=== PATIENT | male | born 1945 | race Caucasian/White ===

== ENCOUNTER 2017-12-09 19:54 | Observation (INO) | payer MEDICARE, OTHER ==
[2017-12-09 20:06] VITALS: BP 123/78; PULSE 105; RESP 24; TEMP 98.2; O2SAT 95
[2017-12-09] MEDS ORDERED: ONDANSETRON HCL 4 MG/2 ML VIAL IV PUSH ONE (22:45)
[2017-12-09] MEDS ORDERED: SODIUM CHLOR 0.9% 1000 ML INJ 1,000 ML IV ONE (22:45)
[2017-12-09] MEDS ORDERED: PANTOPRAZOLE SODIUM 40 MG VIAL IV PUSH ONE (22:45)
[2017-12-09 23:06] VITALS: BP 149/86; PULSE 86; RESP 18; O2SAT 98
[2017-12-09] MEDS ORDERED: ONDA8TAB7 PO (23:10)
[2017-12-09] MEDS ORDERED: LANTUS2P SQ (23:10)
[2017-12-09] MEDS ORDERED: NIFE30TA61 PO (23:10)
[2017-12-09] MEDS ORDERED: LISI-519 PO (23:10)
[2017-12-09] MEDS ORDERED: HUMALOG SQ (23:10)
[2017-12-09] MEDS ORDERED: OMEP20TA93 PO (23:10)
[2017-12-09] MEDS ORDERED: METF500T PO (23:10)
[2017-12-09] MEDS ORDERED: KLOR10TA PO (23:10)
[2017-12-09 23:15] LABS: ALBUMIN 3.5 GM/DL (3.4-5.0); ALT (GPT) 22 U/L (12-78); AST (GOT) 22 U/L (15-37); BICARBONATE 24.1 MEQ/L (21.0-32.0); BLOOD UREA NITROGEN 12 MG/DL (7-18); CALCIUM 9.1 MG/DL (8.5-10.1); CHLORIDE 107 MEQ/L (98-107); CREATININE 1.07 MG/DL (0.60-1.30); GLOMERULAR FILTRATION RATE 68 ML/MIN (>89); GLUCOSE,RANDOM 151 MG/DL (74-106); SODIUM (NA) 140 MEQ/L (136-145)
[2017-12-09 23:18] LABS: ALKALINE PHOSPHATASE 136 U/L (45-117); TOTAL BILIRUBIN ADULT 0.7 MG/DL (0.2-1.0); TOTAL PROTEIN 7.6 GM/DL (6.4-8.2)
[2017-12-09 23:23] LABS: AUTOMATED NEUTROPHIL # 6.4 TH/MM3 (1.8-7.7); BASOPHIL % 0.4 % (0.0-2.0); EOSINOPHIL # 0.1 TH/MM3 (0-0.4); EOSINOPHIL % 1.3 % (0.0-4.0); HEMATOCRIT 35.9 % (39.0-51.0); HEMOGLOBIN 12.4 GM/DL (13.0-17.0); LYMPH % 19.4 % (9.0-44.0); LYMPHOCYTE # 1.8 TH/MM3 (1.0-4.8); MEAN CELL VOLUME 92.3 FL (80.0-100.0); MEAN CORPUSCULAR HGB CONC 34.6 % (32.0-36.0); MEAN PLATELET VOLUME 6.4 FL (7.0-11.0); MONO % 8.2 % (0.0-8.0); MONOCYTE # 0.7 TH/MM3 (0-0.9); NEUT % 70.7 % (16.0-70.0); PLATELET COUNT 423 TH/MM3 (150-450); RED BLOOD COUNT 3.89 MIL/MM3 (4.50-5.90); RED CELL DISTRIBUTION WIDTH 14.4 % (11.6-17.2); WHITE BLOOD COUNT 9.1 TH/MM3 (4.0-11.0)
[2017-12-09 23:25] LABS: BILIRUBIN, URINE NEG (NEG); BLOOD, URINE NEG (NEG); GLUCOSE,URINE NEG (NEG); HYALINE CAST, URINE 3 /lpf (RARE); KETONE, URINE TRACE mg/dL (NEG); MUCUS URINE MANY /lpf (OCC); NITRITE,URINE NEG (NEG); PH, URINE 5.5 (5.0-8.5); SQUAMOUS EPITHELIAL CELL URINE <1 /hpf (0-5); URINE COLOR YELLOW (YELLW/STRAW); URINE LEUKOCYTE ESTERASE TRACE (NEG); WHITE BLOOD CELL CAST, URINE 3 /lpf
[2017-12-09 23:37] LABS: PROTHROMBIN TIME - PATIENT 10.3 SEC (9.8-11.6)
[2017-12-10] VITALS (10 sets, daily range): BP systolic 115–134; BP diastolic 60–70; PULSE 65–77; RESP 14–18; TEMP 98.1–98.6; O2SAT 93–97
--- NOTE | 2017-12-10 00:25 | RADRPT ---
EXAM DATE/TIME: 12/09/2017 23:57 [place] COMPARISON: No previous studies available for comparison. INDICATIONS : Abdomen pain. IV CONTRAST: 100 cc Omnipaque 350 (iohexol) IV ORAL CONTRAST: No oral contrast ingested. RADIATION DOSE: 10.5 CTDIvol (mGy) MEDICAL HISTORY : Carcinoma, pancreas. SURGICAL HISTORY : stent ENCOUNTER: Initial ACUITY: 1 day PAIN SCALE: 5/10 LOCATION: Bilateral abdomen TECHNIQUE: Volumetric scanning of the abdomen and pelvis was performed. Using automated exposure control and ad justment of the mA and/or kV according to patient size, radiation dose was kept as low as reasonably achievable to obtain optimal diagnostic quality images. DICOM format image data is available electro nically for review and comparison. FINDINGS: LOWER LUNGS: The visualized lower lungs are clear. LIVER: Homogeneous density with an 11 mm low-density lesion in the right liver and 29 mm low-density lesions in the left lobe. There is pneumobilia without dilatation of the bowel ducts. Gallbladder remains pr esent and no calcified stones are seen. There is air in the gallbladder lumen. A metallic stent stent s from the hilum of the liver distally to the second portion of the duodenum. SPLEEN: Normal size without lesion. PANCREAS: There is an area of ill-defined low-density in the pancreatic body measuring approximately 2.5 cm. Th ere is atrophy of the pancreatic tail. No duct dilatation is present. There additionally is an area o f low density fullness along the medial aspect of the pancreatic head. KIDNEYS: Normal in size and shape. There is no stone or hydronephrosis. There is a 1.8 cm low-density lesion at the upper pole of the left kidney. Hounsfield measurements are 56. ADRENAL GLANDS: Within normal limits. VASCULAR: There is no aortic aneurysm. There is moderate to severe atherosclerotic disease. BOWEL/MESENTERY: The stomach, small bowel, and colon demonstrate no acute abnormality. There is no free intraperitone al air. There is a moderate volume of free fluid in the abdomen and pelvis with areas of mild periton eal enhancement. ABDOMINAL WALL: There is a small umbilical hernia containing fat and fluid. RETROPERITONEUM: There is no lymphadenopathy. BLADDER: No wall thickening or mass. REPRODUCTIVE: Prostate gland is enlarged. There is a hypervascular area at the right prostate base measuring approx imately 2.1 cm. INGUINAL: There is no lymphadenopathy or hernia. MUSCULOSKELETAL: There are degenerative changes of the lumbar spine but no lytic or blastic lesion is seen. CONCLUSION: 1. No acute finding is identified within the abdomen or pelvis. However, there is free fluid in the a bdomen and pelvis with areas of mild peritoneal enhancement suspicious for peritoneal spread of disea se in this patient with known pancreatic cancer. There is a an ill-defined area of low-density in the pancreatic body measuring 2.5 cm and an area of low density fullness in the medial pancreatic head w hich could correspond to the primary tumor site. Suggest correlating with the patient's prior imaging studies. 2. There are 3 low-density lesions within the liver ranging in size from 9 mm up to 11 mm. These are suspicious for metastatic lesions. Again, suggest correlating with the patient's prior imaging studie s. 3. There is a 1.8 cm low-density lesion in the left upper pole kidney. It does not meet criteria for a simple cyst. Suggest correlating with prior imaging studies or further characterizing with ultrasou nd, if needed clinically. 4. There is a 2.1 cm hypervascular area at the right prostate base. This could represent a hyperplast ic nodule or carcinoma. If PSA is elevated which consider further evaluation. Robby Ward MD on December 10, 2017 at 0:13 Board Certified Radiologist. This report was verified electronically.
[2017-12-10] MEDS ORDERED: IOHEXOL 350 MG/ML 10 ML VIAL (for RAD DIAG) IVCONTRAST ONE (00:41)
[2017-12-10] MEDS ORDERED: GLUCAGON 1 MG/ML VIAL OTHER PRN (01:00)
[2017-12-10] MEDS ORDERED: NALOXONE HCL 0.4 MG/ML AMP IV PUSH PRN (01:00)
[2017-12-10] MEDS ORDERED: MORPHINE SULFATE 2 MG/ML INJ IV PUSH ONE (01:00)
[2017-12-10] MEDS ORDERED: DEXTROSE 50% IN WATER 50 ML VIAL(D50) IV PUSH PRN (01:00)
[2017-12-10] MEDS ORDERED: SODIUM CHLORIDE 0.9% FLUSH 10 ML FLUSH IV FLUSH PRN (01:00)
[2017-12-10] MEDS ORDERED: ACETAMINOPHEN 325 MG TAB PO PRN (01:00)
[2017-12-10] MEDS: SODIUM CHLOR 0.9% 1000 ML INJ 1,000 ML IV SCH ×3 (01:10→20:12)
[2017-12-10] MEDS: HEPARIN SODIUM - SQ 10,000 UNITS/ML VIAL SQ SCH ×3 (01:10→15:59)
--- NOTE | 2017-12-10 01:48 | PD ---
HPI . Abdominal pain Chief Complaint: Abdominal Pain Time Seen by Provider: 22:36 Travel History International Travel<30 days: No Contact w/Intl Traveler<30days: No Traveled to known affect area: No History of Present Illness HPI 72-year-old male with history of pancreatic cancer undergoing chemotherapy, patient presents with having worsening abdominal pain, abdominal distention, sent in by his oncologist for evaluation, CT scan, and admission with oncology consult. Patient denies fever chills sweats, has nausea but no vomiting, and no significant stool changes, no diarrhea stearrhea or constipation. Denies cough or shortness of breath. PFSH Past Medical History Narrative Medical Past medical history reviewed Chemotherapy: Yes Diabetes: Yes Patient Takes Glucophage: Yes Medical other: Yes (double implanted port for chemo) Social History Alcohol Use: Yes (occassionally ) Tobacco Use: No Substance Use: No Allergies-Medications (Allergen,Severity, Reaction): Coded Allergies: No Known Allergies (Verified Allergy, Unknown, 12/09/17) Reported Meds & Prescriptions Reported Meds & Active Scripts Active Reported Lantus Inj (Insulin Glargine) 1,000 Unit/10 Ml Vial 30 Units SQ HS Humalog Inj (Insulin Human Lispro) 1,000 Unit/10 Ml Vial 10 Units SQ ACHS Max dose at bedtime:( )units; sugars < 70,(0)units; sugars 150-199,(2)units; sugars 200-249,(4)units; sugars 250-299,(7)units; sugars 300-349,(10)units; sugars more than 349,(12)units. Lisinopril 5 Mg Tab 5 Mg PO DAILY Klor-Con 10 (Potassium Chloride) 10 Meq Tab 10 Meq PO DAILY Ondansetron (Ondansetron HCl) 8 Mg Tab 8 Mg PO TID PRN Omeprazole 20 Mg Tab 20 Mg PO DAILY Nifedipine ER 24 HR (Nifedipine) 30 Mg Tab 30 Mg PO DAILY Metformin (Metformin HCl) 500 Mg Tab 500 Mg PO BIDPC Narrative Medication Allergies and medications reviewed Review of Systems Except as stated in HPI: all other systems reviewed are Neg General / Constitutional: No: Fever Eyes: No: Visual changes HENT: No: Headaches Cardiovascular: No: Chest Pain or Discomfort Respiratory: No: Shortness of Breath Gastrointestinal: Positive: Nausea, Abdominal Pain, No: Vomiting, Diarrhea, Hematemesis, Hematochezia, Constipation Genitourinary: No: Urgency, Frequency, Dysuria, Hematuria Musculoskeletal: No: Pain Skin: No Rash Neurologic: No: Weakness Psychiatric: No: Depression Endocrine: No: Polydipsia Hematologic/Lymphatic: No: Easy Bruising Physical Exam Narrative GENERAL: Awake alert oriented 3 patient appears uncomfortable but no acute distress vital signs otherwise afebrile normal and stable SKIN: Warm and dry. Color is sallow, no diaphoresis cyanosis or pallor HEAD: Atraumatic. Normocephalic. EYES: Pupils equal and round. No scleral icterus. No injection or drainage. ENT: No nasal bleeding or discharge. Mucous membranes pink and moist. NECK: Trachea midline. No JVD. Supple full range of motion CARDIOVASCULAR: Regular rate and rhythm. S1-S2 no murmurs rubs gallops RESPIRATORY: No accessory muscle use. Clear to auscultation. Breath sounds equal bilaterally. GASTROINTESTINAL: Abdomen soft, non-tender, nondistended. Hepatic and splenic margins not palpable. MUSCULOSKELETAL: Extremities without clubbing, cyanosis, or edema. No obvious deformities. NEUROLOGICAL: Awake and alert. No obvious deficits. PSYCHIATRIC: Appropriate mood and affect; insight and judgment normal. Data Data Last Documented VS Vital Signs Date Time Temp Pulse Resp B/P (MAP) Pulse Ox O2 Delivery O2 Flow Rate FiO2 12/09/17 23:06 86 18 149/86 (107) 98 Room Air 12/09/17 20:06 98.2 Orders Orders Complete Blood Count With Diff (12/09/17 20:08) Comprehensive Metabolic Panel (12/09/17 20:08) Lipase (12/09/17 20:08) Prothrombin Time / Inr (Pt) (12/09/17 20:08) Act Partial Throm Time (Ptt) (12/09/17 20:08) Urinalysis - C+S If Indicated (12/09/17 20:08) Lactic Acid Sepsis Protocol (12/09/17 20:08) Blood Culture (12/09/17 20:08) Sodium Chlor 0.9% 1000 Ml Inj (Ns 1000 M (12/09/17 22:45) Ondansetron Inj (Zofran Inj) (12/09/17 22:45) Pantoprazole Inj (Protonix Inj) (12/09/17 22:45) Ct Abd/Pel W Iv Contrast(Rout) (12/09/17 ) Iohexol 350 Inj (Omnipaque 350 Inj) (12/10/17 00:41) Place In Observation (12/10/17 ) Vital Signs (Adult) Q4H (12/10/17 00:50) Activity Oob With Assistance (12/10/17 00:50) Intake + Output ROSALVA.QSHIFT (12/10/17 00:50) Diet 1800 Ada Cons Carb (12/10/17 Breakfast) Sodium Chlor 0.9% 1000 Ml Inj (Ns 1000 M (12/10/17 00:50) Sodium Chloride 0.9% Flush (Ns Flush) (12/10/17 01:00) Sodium Chloride 0.9% Flush (Ns Flush) (12/10/17 09:00) Acetaminophen (Tylenol) (12/10/17 01:00) Ondansetron Inj (Zofran Inj) (12/10/17 01:00) Comprehensive Metabolic Panel (12/11/17 06:00) Complete Blood Count With Diff (12/11/17 06:00) Heparin Inj (Heparin Inj) (12/10/17 01:00) Naloxone Inj (Narcan Inj) (12/10/17 01:00) Morphine Inj (Morphine Inj) (12/10/17 01:00) Bedside Glucose ROSALVA.CSUGAR (12/10/17 00:50) Special Diet Instructions (12/10/17 00:50) Blood Glucose Goal (Criteria) (12/10/17 00:50) Hypoglycemia 70 Mg/Dl Or < (12/10/17 00:50) Notify Dr: Other (12/10/17 00:50) Dextrose 50% In [place] (Vial) Inj (D50w (Vi (12/10/17 01:00) Glucagon Inj (Glucagon Inj) (12/10/17 01:00) Insulin Aspart Supplemtl Scale (Novolog (12/10/17 08:00) Lisinopril (Prinivil) (12/10/17 09:00) Nifedipine Sr (Procardia Xl) (12/10/17 09:00) Pantoprazole (Protonix) (12/10/17 09:00) Admit Order (Ed Use Only) (12/10/17 00:59) Morphine Inj (Morphine Inj) (12/10/17 01:00) Labs Laboratory Tests Test 12/09/17 22:20 12/09/17 22:30 12/09/17 22:45 12/09/17 23:00 Prothrombin Time 10.3 SEC Prothromb Time International Ratio 1.0 RATIO Activated Partial Thromboplast Time 28.6 SEC Blood Urea Nitrogen 12 MG/DL Creatinine 1.07 MG/DL Random Glucose 151 MG/DL Total Protein 7.6 GM/DL Albumin 3.5 GM/DL Calcium Level 9.1 MG/DL Alkaline Phosphatase 136 U/L Aspartate Amino Transf (AST/SGOT) 22 U/L Alanine Aminotransferase (ALT/SGPT) 22 U/L Total Bilirubin 0.7 MG/DL Sodium Level 140 MEQ/L Potassium Level 4.4 MEQ/L Chloride Level 107 MEQ/L Carbon Dioxide Level 24.1 MEQ/L Anion Gap 9 MEQ/L Estimat Glomerular Filtration Rate 68 ML/MIN Lipase 47 U/L Lactic Acid Level 1.3 mmol/L Urine Color YELLOW Urine Turbidity HAZY Urine pH 5.5 Urine Specific [place] 1.035 Urine Protein 30 mg/dL Urine Glucose (UA) NEG mg/dL Urine Ketones TRACE mg/dL Urine Occult Blood NEG Urine Nitrite NEG Urine Bilirubin NEG Urine Urobilinogen 2.0 MG/DL Urine Leukocyte Esterase TRACE Urine RBC 4 /hpf Urine WBC 3 /hpf Urine Squamous Epithelial Cells <1 /hpf Urine Hyaline Casts 3 /lpf Urine White Blood Cell Casts 3 /lpf Urine Mucus MANY /lpf Microscopic Urinalysis Comment CULT NOT INDICATED White Blood Count 9.1 TH/MM3 Red Blood Count 3.89 MIL/MM3 Hemoglobin 12.4 GM/DL Hematocrit 35.9 % Mean Corpuscular Volume 92.3 FL Mean Corpuscular Hemoglobin 32.0 PG Mean Corpuscular Hemoglobin Concent 34.6 % Red Cell Distribution Width 14.4 % Platelet Count 423 TH/MM3 Mean Platelet Volume 6.4 FL Neutrophils (%) (Auto) 70.7 % Lymphocytes (%) (Auto) 19.4 % Monocytes (%) (Auto) 8.2 % Eosinophils (%) (Auto) 1.3 % Basophils (%) (Auto) 0.4 % Neutrophils # (Auto) 6.4 TH/MM3 Lymphocytes # (Auto) 1.8 TH/MM3 Monocytes # (Auto) 0.7 TH/MM3 Eosinophils # (Auto) 0.1 TH/MM3 Basophils # (Auto) 0.0 TH/MM3 CBC Comment DIFF FINAL Differential Comment MDM Medical Decision Making Medical Screen Exam Complete: Yes Emergency Medical Condition: Yes Medical Record Reviewed: Yes Differential Diagnosis Pancreatic cancer, bowel obstruction, biliary obstruction, abdominal pain Narrative Course Laboratory examinations reviewed, no significant abnormality CT abdomen pelvis reviewed, patient has large amount of ascites. Case was admitted to hospitalist service with oncology consultation as directed. Diagnosis Primary Impression: Abdominal pain Qualified Codes: R10.9 - Unspecified abdominal pain Additional Impressions: Pancreatic cancer Qualified Codes: C25.9 - Malignant neoplasm of pancreas, unspecified Ascites Qualified Codes: R18.0 - Malignant ascites Admitting Information Admitting Physician Requests: Felix Singh MD Dec 10, 2017 01:48
[2017-12-10] MEDS: MORPHINE SULFATE 2 MG/ML INJ IV PUSH PRN ×5 (04:28→22:18)
[2017-12-10] MEDS: NIFEdipine 30 MG SUSTAINED RELEASE TAB PO SCH (08:17)
[2017-12-10] MEDS: PANTOPRAZOLE SOD 20 MG DELAYED RELEASE TAB PO SCH (08:17)
[2017-12-10] MEDS: LISINOPRIL 5 MG TAB PO SCH (08:17)
[2017-12-10] MEDS: SODIUM CHLORIDE 0.9% FLUSH 10 ML FLUSH IV FLUSH SCH ×2 (08:18→20:07)
[2017-12-10] MEDS: INSULIN ASPART SUPPLEMENTAL SCALE SQ SCH ×4 (08:22→20:12)
--- NOTE | 2017-12-10 11:44 | HHI.HP ---
[facility] Aiden Fontana MD Admission Diagnosis Abdominal Pain, Pancreatic CA, Ascites Diagnoses: Chief Complaint: Abdominal pain, nausea vomiting Travel History International Travel<30 Days: No Contact w/Intl Traveler <30 Da: No Traveled to Known Affected Are: No History of Present Illness This is a 72-year-old male with pancreatic cancer diagnosed in January 2017 currently being treated with chemotherapy by Dr. Fontana presented due to abdominal pain and distention. Patient stated that this happened about 2 weeks ago which his abdomen got larger and pain worsened over time. He stated that initially was mild but then worsened. He also had nausea and vomiting. He stated that he would vomit his food at times. Patient has been constipated for the last 12 days. He took senna and prune juice for his constipation. He saw Dr. Fontana yesterday and recommended to go to the emergency permit for further treatment. Patient had his CT scan of the abdomen report from September 2017. He said that he was doing better. Denies any fevers or chills. All other review system reviewed and negative. Past Family Social History Past Medical History Hypertension Pancreatic cancer Type 2 diabetes GERD Past Surgical History Bilateral arthroscopy Reported Medications Lantus Inj (Insulin Glargine) 1,000 Unit/10 Ml Vial 30 Units SQ HS Humalog Inj (Insulin Human Lispro) 1,000 Unit/10 Ml Vial 10 Units SQ ACHS Max dose at bedtime:( )units; sugars < 70,(0)units; sugars 150-199,(2)units; sugars 200-249,(4)units; sugars 250-299,(7)units; sugars 300-349,(10)units; sugars more than 349,(12)units. Lisinopril 5 Mg Tab 5 Mg PO DAILY Klor-Con 10 (Potassium Chloride) 10 Meq Tab 10 Meq PO DAILY Ondansetron (Ondansetron HCl) 8 Mg Tab 8 Mg PO TID PRN Omeprazole 20 Mg Tab 20 Mg PO DAILY Nifedipine ER 24 HR (Nifedipine) 30 Mg Tab 30 Mg PO DAILY Metformin (Metformin HCl) 500 Mg Tab 500 Mg PO BIDPC Allergies: Coded Allergies: No Known Allergies (Verified Allergy, Unknown, 12/09/17) Active Ordered Medications Current Medications Sodium Chloride 1,000 ml @ 999 mls/hr BOLUS ONCE IV Last administered on at 23:03; Start 12/09/17 at 22:45; Stop 12/09/17 at 23:45; Status DC Ondansetron HCl (Zofran Inj) 4 mg ONCE ONCE IV PUSH Last administered on at 23:03; Start 12/09/17 at 22:45; Stop 12/09/17 at 22:46; Status DC Pantoprazole Sodium (Protonix Inj) 40 mg ONCE ONCE IV PUSH Last administered on 12/09/17at 23:03; Start 12/09/17 at 22:45; Stop 12/09/17 at 22:46; Status DC Iohexol (Omnipaque 350 Inj) 100 ml STK-MED ONCE IVCONTRAST Last administered on 12/10/17at 00:41; Start 12/10/17 at 00:41; Stop 12/10/17 at 00:42; Status DC Sodium Chloride 1,000 ml @ 100 mls/hr Q10H IV Last administered on 12/10/17at 01 :10; Start 12/10/17 at 00:50 Sodium Chloride (NS Flush) 2 ml UNSCH PRN IV FLUSH FLUSH AFTER USING IV ACCESS ; Start 12/10/17 at 01:00 Sodium Chloride (NS Flush) 2 ml BID IV FLUSH Last administered on 12/10/17at 08: 18; Start 12/10/17 at 09:00 Acetaminophen (Tylenol) 650 mg Q4H PRN PO TEMP > 100.4; Start 12/10/17 at 01:00 Ondansetron HCl (Zofran Inj) 4 mg Q6H PRN IVP NAUSEA OR VOMITING; Start at 01:00 Heparin Sodium (Porcine) (Heparin Inj) 5,000 units Q8H SQ Last administered on 12/10/17at 08:18; Start 12/10/17 at 01:00 Naloxone HCl (Narcan Inj) 0.4 mg UNSCH PRN IV PUSH SEE LABEL COMMENTS; Start at 01:00 Morphine Sulfate (Morphine Inj) 2 mg Q3H PRN IV PUSH PAIN SCALE 5 TO 10 Last administered on 12/10/17at 08:22; Start 12/10/17 at 01:00 Dextrose (D50w (Vial) Inj) 50 ml UNSCH PRN IV PUSH HYPOGLYCEMIA-SEE COMMENTS; Start 12/10/17 at 01:00 Glucagon (Glucagon Inj) 1 mg UNSCH PRN OTHER HYPOGLYCEMIA-SEE COMMENTS; Start 12/10/17 at 01:00 Insulin Aspart (NovoLOG SUPPLEMENTAL SCALE) 1 ACHS SLIDING SCALE SQ Last administered on 12/10/17at 08:22; Start 12/10/17 at 08:00 Lisinopril (Prinivil) 5 mg DAILY PO Last administered on 12/10/17at 08:17; Start 12/10/17 at 09:00 Nifedipine (Procardia Xl) 30 mg DAILY PO Last administered on 12/10/17at 08:17; Start 12/10/17 at 09:00 Pantoprazole Sodium (Protonix) 20 mg DAILY PO Last administered on 12/10/17at 08: 17; Start 12/10/17 at 09:00 Morphine Sulfate (Morphine Inj) 2 mg ONCE ONCE IV PUSH Last administered on 12/10/17at 01:27; Start 12/10/17 at 01:00; Stop 12/10/17 at 01:01; Status DC Lactulose (Lactulose Liq) 30 ml TID PO ; Start 12/10/17 at 11:45 Family History Mother had a history of diabetes and heart disease. Brother had a history of [place] at the age of 66. Social History Patient drinks about 1 can of beer a week. Denies any tobacco or illicit drug use. Physical Exam Vital Signs Vital Signs Date Time Temp Pulse Resp B/P (MAP) Pulse Ox O2 Delivery O2 Flow Rate FiO2 12/10/17 08:13 98.6 68 18 115/66 (82) 96 12/10/17 04:00 98.3 76 16 119/60 (79) 93 12/10/17 04:00 75 12/10/17 04:00 12/10/17 01:18 72 14 127/67 (87) 97 Room Air 12/09/17 23:06 86 18 149/86 (107) 98 Room Air 12/09/17 20:06 98.2 105 24 123/78 (93) 95 Physical Exam GENERAL: This is a well-nourished, well-developed patient, in no apparent distress. SKIN: No rashes, ecchymoses or lesions. Cool and dry. HEAD: Atraumatic. Normocephalic. No temporal or scalp tenderness. EYES: Pupils equal round and reactive. Extraocular motions intact. No scleral icterus. No injection or drainage. ENT: Nose without bleeding, purulent drainage or septal hematoma. Throat without erythema, tonsillar hypertrophy or exudate. Uvula midline. Airway patent. NECK: Trachea midline. No JVD or lymphadenopathy. Supple, nontender, no meningeal signs. CARDIOVASCULAR: Regular rate and rhythm without murmurs, gallops, or rubs. RESPIRATORY: Clear to auscultation. Breath sounds equal bilaterally. No wheezes , rales, or rhonchi. GASTROINTESTINAL: Abdomen soft, non-tender, nondistended. No hepato-splenomegaly , or palpable masses. No guarding. MUSCULOSKELETAL: Extremities without clubbing, cyanosis, or edema. No joint tenderness, effusion, or edema noted. No calf tenderness. Negative Homans sign bilaterally. NEUROLOGICAL: Awake and alert. Cranial nerves II through XII intact. Motor and sensory grossly within normal limits. Five out of 5 muscle strength in all muscle groups. Normal speech. Laboratory Laboratory Tests Test 12/09/17 22:20 12/09/17 22:30 12/09/17 22:45 12/09/17 23:00 Prothrombin Time 10.3 Prothromb Time International Ratio 1.0 Activated Partial Thromboplast Time 28.6 Blood Urea Nitrogen 12 Creatinine 1.07 Random Glucose 151 Total Protein 7.6 Albumin 3.5 Calcium Level 9.1 Alkaline Phosphatase 136 Aspartate Amino Transf (AST/SGOT) 22 Alanine Aminotransferase (ALT/SGPT) 22 Total Bilirubin 0.7 Sodium Level 140 Potassium Level 4.4 Chloride Level 107 Carbon Dioxide Level 24.1 Anion Gap 9 Estimat Glomerular Filtration Rate 68 Lipase 47 Lactic Acid Level 1.3 Urine Color YELLOW Urine Turbidity HAZY Urine pH 5.5 Urine Specific [place] 1.035 Urine Protein 30 Urine Glucose (UA) NEG Urine Ketones TRACE Urine Occult Blood NEG Urine Nitrite NEG Urine Bilirubin NEG Urine Urobilinogen 2.0 Urine Leukocyte Esterase TRACE Urine RBC 4 Urine WBC 3 Urine Squamous Epithelial Cells <1 Urine Hyaline Casts 3 Urine White Blood Cell Casts 3 Urine Mucus MANY Microscopic Urinalysis Comment CULT NOT INDICATED White Blood Count 9.1 Red Blood Count 3.89 Hemoglobin 12.4 Hematocrit 35.9 Mean Corpuscular Volume 92.3 Mean Corpuscular Hemoglobin 32.0 Mean Corpuscular Hemoglobin Concent 34.6 Red Cell Distribution Width 14.4 Platelet Count 423 Mean Platelet Volume 6.4 Neutrophils (%) (Auto) 70.7 Lymphocytes (%) (Auto) 19.4 Monocytes (%) (Auto) 8.2 Eosinophils (%) (Auto) 1.3 Basophils (%) (Auto) 0.4 Neutrophils # (Auto) 6.4 Lymphocytes # (Auto) 1.8 Monocytes # (Auto) 0.7 Eosinophils # (Auto) 0.1 Basophils # (Auto) 0.0 CBC Comment DIFF FINAL Differential Comment Date/Time Source Procedure Growth Status 12/09/17 22:20 Blood Peripheral Aerobic Blood Culture - Preliminary NO GROWTH IN 1 DAY Resulted 12/09/17 22:20 Blood Peripheral Anaerobic Blood Culture - Preliminary NO GROWTH IN 1 DAY Resulted Result Diagram: 12/09/17 2300 12/09/17 2220 Caprini VTE Risk Assessment Caprini VTE Risk Assessment: Mod/High Risk (score >= 2) Caprini Risk Assessment Model Point Value = 1 Point Value = 2 Point Value = 3 Point Value = 5 Age 41-60 Minor surgery BMI > 25 kg/m2 Swollen legs Varicose veins or History of unexplained or recurrent spontaneous Oral contraceptives or hormone replacement Sepsis (< 1 month) Serious lung disease, including pneumonia (< 1 month) Abnormal pulmonary function Acute myocardial infarction Congestive heart failure (< 1 month) History of inflammatory bowel disease Medical patient at bed rest Age 61-74 Arthroscopic surgery Major open surgery (> 45 min) Laparoscopic surgery (> 45 min) Malignancy Confined to bed (> 72 hours) Immobilizing plaster cast Central venous access Age >= 75 History of VTE Family history of VTE Factor V Leiden Prothrombin [id number] Lupus anticoagulant Anticardiolipin antibodies Elevated serum homocysteine Heparin-induced thrombocytopenia Other congenital or acquired thrombophilia Stroke (< 1 month) Elective arthroplasty Hip, pelvis, or leg fracture Acute spinal cord injury (< 1 month) Prophylaxis Regimen Total Risk Factor Score Risk Level Prophylaxis Regimen 0-1 Low Early ambulation 2 Moderate Order ONE of the following: *Sequential Compression Device (SCD) *Heparin 5000 units SQ BID 3-4 Higher Order ONE of the following medications: *Heparin 5000 units SQ TID *Enoxaparin/Lovenox 40 mg SQ daily (WT < 150 kg, CrCl > 30 mL/min) *Enoxaparin/Lovenox 30 mg SQ daily (WT < 150 kg, CrCl > 10-29 mL/min) *Enoxaparin/Lovenox 30 mg SQ BID (WT < 150 kg, CrCl > 30 mL/min) AND/OR *Sequential Compression Device (SCD) 5 or more Highest Order ONE of the following medications: *Heparin 5000 units SQ TID (Preferred with Epidurals) *Enoxaparin/Lovenox 40 mg SQ daily (WT < 150 kg, CrCl > 30 mL/min) *Enoxaparin/Lovenox 30 mg SQ daily (WT < 150 kg, CrCl > 10-29 mL/min) *Enoxaparin/Lovenox 30 mg SQ BID (WT < 150 kg, CrCl > 30 mL/min) AND *Sequential Compression Device (SCD) Assessment and Plan Assessment and Plan This is a 72-year-old male with history of pancreatic cancer being currently treated with chemotherapy who presented with abdominal pain Abdominal pain/nausea/vomiting -Occurred [address] scan of abdomen/pelvis shows pancreatic, liver, and kidney lesions. It also shows possible metastases to the peritoneum. Comparison to his prior CT scan done in September 2017 it seems like the pancreatic and liver lesion has improved. Will get a renal ultrasound in regards to the kidney list patient. Patient did not have any peritoneal lesions on the prior CT scan. -I recommended to patient for his oncologist to review the scan with him but he asked if I would tell him the results. Most likely patient will need a paracentesis with cytology. Will wait for his oncologist to see patient. He may also need a CT scan of his chest. -Continue with supportive care with IV fluids, antiemetics, pain control. -Oncologist consulted. Pancreatic cancer with metastases -Patient currently receiving chemotherapy. He is being followed by oncologist Dr. Fontana. -See treatment as above. Type 2 diabetes/hypertension/GERD -Placed on insulin sliding scale. -Resume home medication. DVT prophylaxis -Anticipating possible paracentesis. Will hold off of chemo prophylaxis. SCDs encourage ambulation. Discussed Condition With patient and his . Sari Luu MD Dec 10, 2017 11:44
[2017-12-10] MEDS: LACTULOSE SYRUP 20 GM/30 ML CUP PO SCH ×3 (12:16→15:59)
--- NOTE | 2017-12-10 16:48 | RADRPT ---
EXAM DATE/TIME: 12/10/2017 16:11 [facility] COMPARISON: No previous studies available for comparison. INDICATIONS : Increased labs. MEDICAL HISTORY : Hypertension. Gastroesophageal reflux disease. Diabetes. Pancreatic cancer. Chemotherapy. SURGICAL HISTORY : Port placement. ENCOUNTER: Initial ACUITY: 1 day PAIN SCORE: 7/10 LOCATION: Bilateral flank MEASUREMENTS: RIGHT KIDNEY: 11.8 x 4.9 x 5.2 cm LEFT KIDNEY: 12.5 x 5.8 x 6.4 cm FINDINGS: RIGHT KIDNEY: Renal cortex is normal in thickness and echotexture. No hydronephrosis, stone, or mass. LEFT KIDNEY: Small 1.9 cm upper pole cyst, otherwise unremarkable BLADDER: The bladder is empty. CONCLUSION: Moderate ascites. Unremarkable renal ultrasound Poli Aranda MD FACR on December 10, 2017 at 16:43 Board Certified Radiologist. This report was verified electronically.
[2017-12-10] MEDS: ONDANSETRON HCL 4 MG/2 ML VIAL IVP PRN (18:18)
--- NOTE | 2017-12-10 20:11 | RADRPT ---
EXAM DATE/TIME: 12/10/2017 19:29 [facility] COMPARISON: No previous studies available for comparison. INDICATIONS : Distention. MEDICAL HISTORY : Hypertension. Gastroesophageal reflux disease. Diabetes. Pancreatic cancer. Chemotherapy. SURGICAL HISTORY : Port placement. ENCOUNTER: Initial ACUITY: 1 day PAIN SCORE: Non-responsive. LOCATION: all quadrants. FINDINGS: Supine view of the abdomen demonstrates gas-containing loops of colon. No dilated loops of small bow el seen. Biliary stent in place. There is some contrast seen within the urinary bladder from recent CT. CONCLUSION: No dilated loops of small bowel seen. Jose May MD on December 10, 2017 at 20:09 Board Certified Radiologist. This report was verified electronically.
[2017-12-11] VITALS (12 sets, daily range): BP systolic 119–150; BP diastolic 64–79; PULSE 72–94; RESP 16–18; TEMP 98.4–100.4; O2SAT 92–94
[2017-12-11] MEDS: ONDANSETRON HCL 4 MG/2 ML VIAL IVP PRN ×2 (00:32→09:01)
[2017-12-11] MEDS: HEPARIN SODIUM - SQ 10,000 UNITS/ML VIAL SQ SCH ×3 (00:32→17:00)
[2017-12-11] MEDS: MORPHINE SULFATE 2 MG/ML INJ IV PUSH PRN ×2 (01:33→09:01)
[2017-12-11 06:18] LABS: AUTOMATED NEUTROPHIL # 4.9 TH/MM3 (1.8-7.7); BASOPHIL % 0.3 % (0.0-2.0); EOSINOPHIL % 0.2 % (0.0-4.0); HEMATOCRIT 28.1 % (39.0-51.0); HEMOGLOBIN 10.1 GM/DL (13.0-17.0); LYMPH % 14.9 % (9.0-44.0); MEAN CORPUSCULAR HEMOGLOBIN 32.7 PG (27.0-34.0); MEAN CORPUSCULAR HGB CONC 35.9 % (32.0-36.0); MONO % 8.3 % (0.0-8.0); MONOCYTE # 0.5 TH/MM3 (0-0.9); NEUT % 76.3 % (16.0-70.0); PLATELET COUNT 306 TH/MM3 (150-450); RED BLOOD COUNT 3.09 MIL/MM3 (4.50-5.90); RED CELL DISTRIBUTION WIDTH 14.7 % (11.6-17.2); WHITE BLOOD COUNT 6.5 TH/MM3 (4.0-11.0)
[2017-12-11 07:22] LABS: ALBUMIN 2.7 GM/DL (3.4-5.0); ALKALINE PHOSPHATASE 175 U/L (45-117); ALT (GPT) 34 U/L (12-78); AST (GOT) 37 U/L (15-37); BICARBONATE 23.2 MEQ/L (21.0-32.0); BLOOD UREA NITROGEN 8 MG/DL (7-18); CALCIUM 8.2 MG/DL (8.5-10.1); CHLORIDE 107 MEQ/L (98-107); CREATININE 0.94 MG/DL (0.60-1.30); GLOMERULAR FILTRATION RATE 79 ML/MIN (>89); GLUCOSE,RANDOM 161 MG/DL (74-106); SODIUM (NA) 139 MEQ/L (136-145); TOTAL BILIRUBIN ADULT 1.1 MG/DL (0.2-1.0); TOTAL PROTEIN 5.8 GM/DL (6.4-8.2)
[2017-12-11] MEDS: INSULIN ASPART SUPPLEMENTAL SCALE SQ SCH ×4 (08:00→21:41)
[2017-12-11] MEDS: LACTULOSE SYRUP 20 GM/30 ML CUP PO SCH ×3 (09:00→17:31)
[2017-12-11] MEDS: NIFEdipine 30 MG SUSTAINED RELEASE TAB PO SCH (09:02)
[2017-12-11] MEDS: SODIUM CHLORIDE 0.9% FLUSH 10 ML FLUSH IV FLUSH SCH ×2 (09:03→21:00)
--- NOTE | 2017-12-11 09:16 | MB ---
cc: Che Steward MD DATE OF CONSULT: 12/10/2017 CHIEF COMPLAINT: 1. Metastatic pancreatic cancer. 2. Abdominal distention. 3. Constipation. HISTORY OF PRESENT ILLNESS: Mr. Durán is a 71-year-old man with a history of diabetes mellitus, irregular heartbeat and pancreatic cancer. 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 He has a history of pancreatic cancer that was originally diagnosed in 01/2017 when he presented with malaise and jaundice. Needle biopsy revealed adenocarcinoma and in 03/2017, he was started on FOLFIRINOX. Subsequent scans have shown a decrease in size of the main pancreatic lesion, as well as metastatic lesions and decrease in CA 19-9. He reports that he has been healthy and well up until about the past 12 days. He reports that 12 days ago, he developed constipation. He reports that he was taking Senokot with no relief. He reports that he is still passing gas and that he is able to eat without nausea. He was seen by Dr. Fontana in clinic and admitted to the hospital. CT scan reveals stable to decreased size of lesions. 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 New ascites. We [place] with [place] CT [place] He had a renal ultrasound performed which revealed moderate ascites. Laboratory studies unrevealing. ROS as above in HPI. All other systems negative. PAST MEDICAL HISTORY: 1. Diabetes. 2. Pancreatic cancer. SOCIAL HISTORY: The patient is a snowbird. He lives in [place] and in [place]; he splits his time every 6 months. He has a good support system with his children and his girlfriend. FAMILY HISTORY: No family history of malignancy. PHYSICAL EXAM: GENERAL: A well-developed, well nourished man in mild distress due to abdominal pain. ENT: Clear oropharynx. NECK: Supple with no palpable lymphadenopathy. CARDIOVASCULAR: Regular rate and rhythm with no murmurs. RESPIRATORY: Clear to auscultation bilaterally. ABDOMEN: Distended, tender. EXTREMITIES: With no edema. NEURO: Grossly nonfocal. ASSESSMENT AND PLAN: 1. Pancreatic cancer. He seems to be responding well to FOLFIRINOX. 2. Abdominal distention, uncertain of etiology. No evidence of any small bowel obstruction. Moderate ascites present on renal ultrasound. I will order a paracentesis to see if the fluid is able to be drained. If fluid is present, we will request cytology. I will request Fleet enema to see if this will assist patient with bowel movement. I will continue to follow this patient. Che Steward MD ARNULFO/DL/ , 05:34 AM , 06:52 AM MTDDoug
[2017-12-11] MEDS ORDERED: LORazepam 2 MG/ML VIAL IV PUSH ONE (09:45)
[2017-12-11] MEDS ORDERED: ACETAMINOPHEN/HYDROcodone 325 MG/5 MG TAB PO PRN (10:00)
[2017-12-11] MEDS ORDERED: ACETAMINOPHEN/HYDROcodone 325 MG/10 MG TAB PO PRN (10:00)
--- NOTE | 2017-12-11 10:02 | HHI.PR ---
Subjective Remarks Follow-up for abdominal pain Patient stated that with certain position his abdominal pain is worse. He stated when he lays on his side it is better. Patient stated that the morphine does not last long enough. He is scheduled for paracentesis today. He said he continues to feel nauseous at times but no emesis. His is at the bedside during the interview. Objective Vitals Vital Signs Date Time Temp Pulse Resp B/P (MAP) Pulse Ox O2 Delivery O2 Flow Rate FiO2 12/11/17 05:12 99.8 89 16 119/64 (82) 92 12/11/17 04:00 85 12/11/17 00:51 98.4 92 16 150/78 (102) 93 12/11/17 00:00 87 12/10/17 20:15 98.5 77 16 123/60 (81) 93 12/10/17 20:00 75 12/10/17 17:17 65 12/10/17 15:55 98.5 65 16 134/70 (91) 95 12/10/17 13:47 69 12/10/17 12:21 98.1 68 16 128/65 (86) 95 I/O 12/10/17 12/10/17 12/10/17 12/11/17 12/11/17 12/11/17 07:00 15:00 23:00 07:00 15:00 23:00 Intake Total 1500 ml 688 ml 1000 ml Output Total 350 ml 350 ml Balance 1500 ml 338 ml 650 ml Intake IV Total 1500 ml 688 ml 1000 ml Output Urine Total 350 ml 350 ml # Voids 1 Result Diagram: 12/11/17 0550 12/11/17 0550 Objective Remarks GENERAL: This is a well-nourished, well-developed patient, in no apparent distress. SKIN: No rashes, ecchymoses or lesions. Cool and dry. HEAD: Atraumatic. Normocephalic. No temporal or scalp tenderness. EYES: Pupils equal round and reactive. Extraocular motions intact. No scleral icterus. No injection or drainage. ENT: Nose without bleeding, purulent drainage or septal hematoma. Throat without erythema, tonsillar hypertrophy or exudate. Uvula midline. Airway patent. NECK: Trachea midline. No JVD or lymphadenopathy. Supple, nontender, no meningeal signs. CARDIOVASCULAR: Regular rate and rhythm without murmurs, gallops, or rubs. RESPIRATORY: Clear to auscultation. Breath sounds equal bilaterally. No wheezes , rales, or rhonchi. GASTROINTESTINAL: Abdomen soft. Positive for distention. Mild diffuse tenderness to palpation of abdomen. No hepato-splenomegaly, or palpable masses. No guarding. MUSCULOSKELETAL: Extremities without clubbing, cyanosis, or edema. No joint tenderness, effusion, or edema noted. No calf tenderness. Negative Homans sign bilaterally. NEUROLOGICAL: Awake and alert. Cranial nerves II through XII intact. Motor and sensory grossly within normal limits. Five out of 5 muscle strength in all muscle groups. Normal speech. Medications and IVs Current Medications Sodium Chloride 1,000 ml @ 999 mls/hr BOLUS ONCE IV Last administered on 23:03; Start 12/09/17 at 22:45; Stop 12/09/17 at 23:45; Status DC Ondansetron HCl (Zofran Inj) 4 mg ONCE ONCE IV PUSH Last administered on 23:03; Start 12/09/17 at 22:45; Stop 12/09/17 at 22:46; Status DC Pantoprazole Sodium (Protonix Inj) 40 mg ONCE ONCE IV PUSH Last administered on 12/09/17 23:03; Start 12/09/17 at 22:45; Stop 12/09/17 at 22:46; Status DC Iohexol (Omnipaque 350 Inj) 100 ml OpicosK-MED ONCE IVCONTRAST Last administered on 12/10/17 00:41; Start 12/10/17 at 00:41; Stop 12/10/17 at 00:42; Status DC Sodium Chloride 1,000 ml @ 100 mls/hr Q10H IV Last administered on 12/10/17 20 :12; Start 12/10/17 at 00:50 Sodium Chloride (NS Flush) 2 ml UNSCH PRN IV FLUSH FLUSH AFTER USING IV ACCESS ; Start 12/10/17 at 01:00 Sodium Chloride (NS Flush) 2 ml BID IV FLUSH Last administered on 12/11/17 09: 03; Start 12/10/17 at 09:00 Acetaminophen (Tylenol) 650 mg Q4H PRN PO TEMP > 100.4 Last administered on 12/11 09:02; Start 12/10/17 at 01:00 Ondansetron HCl (Zofran Inj) 4 mg Q6H PRN IVP NAUSEA OR VOMITING Last administered on 12/11/17at 09:01; Start 12/10/17 at 01:00 Heparin Sodium (Porcine) (Heparin Inj) 5,000 units Q8H SQ Last administered on 12/11/17at 00:32; Start 12/10/17 at 01:00 Naloxone HCl (Narcan Inj) 0.4 mg UNSCH PRN IV PUSH SEE LABEL COMMENTS; Start at 01:00 Morphine Sulfate (Morphine Inj) 2 mg Q3H PRN IV PUSH PAIN SCALE 5 TO 10 Last administered on 12/11/17at 09:01; Start 12/10/17 at 01:00 Dextrose (D50w (Vial) Inj) 50 ml UNSCH PRN IV PUSH HYPOGLYCEMIA-SEE COMMENTS; Start 12/10/17 at 01:00 Glucagon (Glucagon Inj) 1 mg UNSCH PRN OTHER HYPOGLYCEMIA-SEE COMMENTS; Start 12/10/17 at 01:00 Insulin Aspart (NovoLOG SUPPLEMENTAL SCALE) 1 ACHS SLIDING SCALE SQ Last administered on 12/11/17at 08:00; Start 12/10/17 at 08:00 Lisinopril (Prinivil) 5 mg DAILY PO Last administered on 12/10/17at 08:17; Start 12/10/17 at 09:00 Nifedipine (Procardia Xl) 30 mg DAILY PO Last administered on 12/11/17at 09:02; Start 12/10/17 at 09:00 Pantoprazole Sodium (Protonix) 20 mg DAILY PO Last administered on 12/10/17at 08: 17; Start 12/10/17 at 09:00 Morphine Sulfate (Morphine Inj) 2 mg ONCE ONCE IV PUSH Last administered on 12/10/17at 01:27; Start 12/10/17 at 01:00; Stop 12/10/17 at 01:01; Status DC Lactulose (Lactulose Liq) 30 ml TID PO Last administered on 12/10/17at 15:59; Start 12/10/17 at 11:45 Lorazepam (Ativan Inj) 1 mg ONCE ONCE IV PUSH ; Start 12/11/17 at 09:45; Stop at 09:46; Status DC A/P Assessment and Plan This is a 72-year-old male with history of pancreatic cancer being currently treated with chemotherapy who presented with abdominal pain Abdominal pain/nausea/vomiting -Occurred [address] scan of abdomen/pelvis shows pancreatic, liver, and kidney lesions. It also shows possible metastases to the peritoneum. Comparison to his prior CT scan done in September 2017 it seems like the pancreatic and liver lesion has improved. Will get a renal ultrasound in regards to the kidney list patient. Patient did not have any peritoneal lesions on the prior CT scan. -Oncologist following. -Patient scheduled for a therapeutic and diagnostic paracentesis. -Continue with supportive care with pain management and antiemetics. Continue with IV fluids. Pancreatic cancer with metastases -Patient currently receiving chemotherapy. He is being followed by oncologist Dr. Fontana. -See treatment as above. Type 2 diabetes/hypertension/GERD -Continue with insulin sliding scale. -Continue with home medication. DVT prophylaxis -Anticipating possible paracentesis. Will hold off of chemo prophylaxis. SCDs encourage ambulation. Sari Luu MD Dec 11, 2017 10:02
[2017-12-11] MEDS ORDERED: MORPHINE SULFATE 2 MG/ML INJ IV PUSH PRN (10:15)
[2017-12-11] MEDS ORDERED: LIDOCAINE HCL 1% 20 ML VIAL ONE (11:33)
--- NOTE | 2017-12-11 12:18 | RADRPT ---
EXAM DATE/TIME: 12/11/2017 08:05 [facility] COMPARISON: No previous studies available for comparison. INDICATIONS : Ascites. MEDICAL HISTORY : Hypertension. Gastroesophageal reflux disease. Diabetes. Pancreatic cancer. Chemotherapy. SURGICAL HISTORY : Port placement. ENCOUNTER: Subsequent ACUITY: 1 week PAIN SCORE: 3/10 LOCATION: Left lower quadrant FLUID: Total volume of 3,300 cc of clear, yellow fluid was removed. Fluid was sent to lab for ordered studies. Post procedure scanning reveals no hematoma or other complication. TECHNIQUE: 1. Ultrasound guidance for abdominal paracentesis. 2. Paracentesis. The risks, benefits, and alternatives to ultrasound guided paracentesis were explained to the patient in detail including the risk of bleeding and infection. Written and verbal informed consent was obt ained. With the patient on the ultrasound table, ultrasound imaging was used to select the most appropriate approach for paracentesis. Overlying skin was prepped and draped in the usual sterile fashion and wi th a local anesthetic, a dermatotomy was made with an 11 blade scalpel. A 6 [place] Keo-[id number]-lspclnme ca theter was introduced into the peritoneal cavity and fluid was collected. The patient tolerated the procedure well and left the ultrasound suite in stable condition. CONCLUSION: Uncomplicated ultrasound guided paracentesis. Ryan Zelaya MD on December 11, 2017 at 12:16 Board Certified Radiologist. This report was verified electronically.
[2017-12-11 12:24] LABS: TOTAL PROTEIN,PERITONEAL FLUID 3.9 GM/DL
[2017-12-11 13:17] LABS: PERITONEAL RBC 49 /MM3 (0-0)
[2017-12-11 13:18] LABS: PERITONEAL HISTIOCYTES 5 %; PERITONEAL LYMPHS 8 %; PERITONEAL MESOTHELIAL 70 %; PERITONEAL MONOS 5 %; PERITONEAL POLYS(SEGS) 12 %
[2017-12-11] MEDS: PANTOPRAZOLE SOD 20 MG DELAYED RELEASE TAB PO SCH (13:35)
[2017-12-11] MEDS: LISINOPRIL 5 MG TAB PO SCH (13:35)
[2017-12-11] MEDS: SODIUM CHLOR 0.9% 1000 ML INJ 1,000 ML IV SCH (14:38)
[2017-12-11] MEDS ORDERED: MINERAL OIL ENEMA 118 ML BTL RECTAL ONE (18:45)
--- NOTE | 2017-12-11 23:50 | PD.ONC.PN ---
Subjective Subjective Remarks Resting in bed. s/p paracentesis. Objective Data Date Time Temp Pulse Resp B/P (MAP) Pulse Ox O2 Delivery O2 Flow Rate FiO2 12/11/17 21:44 99.8 90 18 139/79 (99) 92 12/11/17 20:10 77 12/11/17 16:00 99.3 92 18 137/75 (95) 94 12/11/17 12:00 98.8 76 16 124/73 (90) 93 12/11/17 09:01 100.4 90 16 129/68 (88) 92 12/11/17 05:12 99.8 89 16 119/64 (82) 92 12/11/17 04:00 85 12/11/17 00:51 98.4 92 16 150/78 (102) 93 12/11/17 00:00 87 Result Diagram: 12/11/17 0550 12/11/17 0550 Laboratory Results Laboratory Tests Test 12/11/17 05:50 12/11/17 10:45 White Blood Count 6.5 TH/MM3 Red Blood Count 3.09 MIL/MM3 Hemoglobin 10.1 GM/DL Hematocrit 28.1 % Mean Corpuscular Volume 91.0 FL Mean Corpuscular Hemoglobin 32.7 PG Mean Corpuscular Hemoglobin Concent 35.9 % Red Cell Distribution Width 14.7 % Platelet Count 306 TH/MM3 Mean Platelet Volume 6.0 FL Neutrophils (%) (Auto) 76.3 % Lymphocytes (%) (Auto) 14.9 % Monocytes (%) (Auto) 8.3 % Eosinophils (%) (Auto) 0.2 % Basophils (%) (Auto) 0.3 % Neutrophils # (Auto) 4.9 TH/MM3 Lymphocytes # (Auto) 1.0 TH/MM3 Monocytes # (Auto) 0.5 TH/MM3 Eosinophils # (Auto) 0.0 TH/MM3 Basophils # (Auto) 0.0 TH/MM3 CBC Comment DIFF FINAL Differential Comment Blood Urea Nitrogen 8 MG/DL Creatinine 0.94 MG/DL Random Glucose 161 MG/DL Total Protein 5.8 GM/DL Albumin 2.7 GM/DL Calcium Level 8.2 MG/DL Alkaline Phosphatase 175 U/L Aspartate Amino Transf (AST/SGOT) 37 U/L Alanine Aminotransferase (ALT/SGPT) 34 U/L Total Bilirubin 1.1 MG/DL Sodium Level 139 MEQ/L Potassium Level 4.0 MEQ/L Chloride Level 107 MEQ/L Carbon Dioxide Level 23.2 MEQ/L Anion Gap 9 MEQ/L Estimat Glomerular Filtration Rate 79 ML/MIN Peritoneal Fluid WBC 1415 /MM3 Peritoneal Fluid RBC 49 /MM3 Peritoneal Fluid Neutrophils 12 % Peritoneal Fluid Lymphocytes 8 % Peritoneal Fluid Monocytes 5 % Peritoneal Fluid Histiocytes 5 % Peritoneal Fluid Mesothelial Cells 70 % Peritoneal Fluid Comment Peritoneal Fluid Total Protein 3.9 GM/DL Peritoneal Fluid Albumin 2.4 G/DL Culture Results Microbiology Date/Time Source Procedure Growth Status 12/09/17 22:20 Blood Peripheral Aerobic Blood Culture - Preliminary NO GROWTH IN 2 DAYS Resulted 12/09/17 22:20 Blood Peripheral Anaerobic Blood Culture - Preliminary NO GROWTH IN 2 DAYS Resulted 12/09/17 22:15 Blood Peripheral Aerobic Blood Culture - Preliminary NO GROWTH IN 2 DAYS Resulted 12/09/17 22:15 Blood Peripheral Anaerobic Blood Culture - Preliminary NO GROWTH IN 2 DAYS Resulted Imaging Studies Last 24 hours Impressions Cyst Biopsy Asp-Paracentesis US 12/11/17 0000 Signed Impressions: Service Date/Time: December 08:05 - CONCLUSION: Uncomplicated ultrasound guided paracentesis. Ryan Zelaya MD Administered Medications Medications (Trade) Dose Ordered Sig/Jesús Route PRN Reason Start Time Stop Time Status Last Admin Dose Admin Sodium Chloride 1,000 ml @ 100 mls/hr Q10H IV 12/10/17 00:50 12/11/17 14:38 Sodium Chloride (NS Flush) 2 ml BID IV FLUSH 12/10/17 09:00 12/11/17 09:03 Acetaminophen (Tylenol) 650 mg Q4H PRN PO TEMP > 100.4 12/10/17 01:00 12/11/17 09:02 Ondansetron HCl (Zofran Inj) 4 mg Q6H PRN IVP NAUSEA OR VOMITING 12/10/17 01:00 12/11/17 09:01 Heparin Sodium (Porcine) (Heparin Inj) 5,000 units Q8H SQ 12/10/17 01:00 12/11/17 00:32 Insulin Aspart (NovoLOG SUPPLEMENTAL SCALE) 1 ACHS SLIDING SCALE SQ 12/10/17 08:00 12/11/17 21:41 Lisinopril (Prinivil) 5 mg DAILY PO 12/10/17 09:00 12/11/17 13:35 Nifedipine (Procardia Xl) 30 mg DAILY PO 12/10/17 09:00 12/11/17 09:02 Pantoprazole Sodium (Protonix) 20 mg DAILY PO 12/10/17 09:00 12/11/17 13:35 Lactulose (Lactulose Liq) 30 ml TID PO 12/10/17 11:45 12/11/17 17:31 Acetaminophen/ Hydrocodone Bitart ([place] 10-325 Mg) 1 tab Q4H PRN PO 8-10 12/11/17 10:00 12/11/17 21:28 Objective Remarks GENERAL: Well-nourished, well-developed patient. SKIN: Warm and dry. HEAD: Normocephalic. EYES: No scleral icterus. No injection or drainage. NECK: Supple, trachea midline. No JVD or lymphadenopathy. LYMPHATIC: No adenopathy. CARDIOVASCULAR: Regular rate and rhythm without murmurs. RESPIRATORY: Breath sounds equal bilaterally. No accessory muscle use. GASTROINTESTINAL: Abdomen soft, non-tender, nondistended. EXTREMITIES: No cyanosis, or edema. MUSCULOSKELETAL: Adequate muscle tone. NEUROLOGICAL: No obvious focal deficit. Awake, alert, and oriented x3. PSYCHIATRIC: Appropriate mood and affect; insight and judgment normal. Assessment/Plan Assessment 1. Metastatic pancreatic cancer: currently receiving chemotherapy with FOLFIRINOX under the direction of Dr. Fontana. Imaging with enhancement of peritoneal surface possibly indicating omental disease. New ascite 2. Ascites: s/p paracentesis with improvement in abdominal pain and distension. Will consult GI team. 3. constipation: mineral oil enema Che Steward MD Dec 11, 2017 23:50
[2017-12-12] VITALS (11 sets, daily range): BP systolic 113–142; BP diastolic 62–72; PULSE 68–108; RESP 16–18; TEMP 99–100; O2SAT 93–96
[2017-12-12] MEDS: HEPARIN SODIUM - SQ 10,000 UNITS/ML VIAL SQ SCH ×3 (00:25→17:00)
[2017-12-12] MEDS: SODIUM CHLOR 0.9% 1000 ML INJ 1,000 ML IV SCH ×2 (00:26→02:50)
[2017-12-12 07:00] LABS: HEMOGLOBIN 9.7 GM/DL (13.0-17.0); MEAN CELL VOLUME 90.3 FL (80.0-100.0); MEAN CORPUSCULAR HEMOGLOBIN 32.4 PG (27.0-34.0); MEAN CORPUSCULAR HGB CONC 35.9 % (32.0-36.0); MEAN PLATELET VOLUME 6.1 FL (7.0-11.0); PLATELET COUNT 273 TH/MM3 (150-450); RED BLOOD COUNT 2.98 MIL/MM3 (4.50-5.90); RED CELL DISTRIBUTION WIDTH 14.5 % (11.6-17.2); WHITE BLOOD COUNT 4.5 TH/MM3 (4.0-11.0)
[2017-12-12 07:17] LABS: ALBUMIN 2.4 GM/DL (3.4-5.0); CALCIUM 7.6 MG/DL (8.5-10.1); CREATININE 0.82 MG/DL (0.60-1.30)
[2017-12-12 07:18] LABS: DIRECT BILIRUBIN ADULT 0.4 MG/DL (0.0-0.2)
[2017-12-12 07:20] LABS: TOTAL BILIRUBIN ADULT 1.4 MG/DL (0.2-1.0); TOTAL PROTEIN 5.5 GM/DL (6.4-8.2)
[2017-12-12] MEDS: LACTULOSE SYRUP 20 GM/30 ML CUP PO SCH ×3 (08:19→18:00)
[2017-12-12] MEDS: LISINOPRIL 5 MG TAB PO SCH (08:19)
[2017-12-12] MEDS: NIFEdipine 30 MG SUSTAINED RELEASE TAB PO SCH (08:19)
[2017-12-12] MEDS: PANTOPRAZOLE SOD 20 MG DELAYED RELEASE TAB PO SCH (08:19)
[2017-12-12] MEDS: SODIUM CHLORIDE 0.9% FLUSH 10 ML FLUSH IV FLUSH SCH (08:22)
[2017-12-12] MEDS: INSULIN ASPART SUPPLEMENTAL SCALE SQ SCH ×3 (08:34→17:00)
--- NOTE | 2017-12-12 11:04 | PD.CONS ---
HPI History of Present Illness This is a 72 year old male who was admitted on 12/09/17 with worsening of abdominal pain and abdominal distention. He was diagnosed with pancreatic cancer in January 2017 and has been undergoing chemotherapy and under the care of oncology. On admission according to the record patient had nausea but no vomiting, no diarrhea. During my exam patient stated that he was very constipated had not been to the bathroom in 10-12 days. He was given an enema on 12/11/17 but had very minimal small pellet results. He is taking lactulose daily. Currently patient states his pressure in his abdomen is much improved less shortness of breath, still has some mild nausea but no vomiting 2 days. Patient is drowsy but does arouse to verbal stimuli and is able to give limited , but good history. He denies any fever, chills, abdominal pain is much more controlled. After hospitalization patient had paracentesis with 3.5 L of fluid removed. (Abida White) PFSH Past Medical History Hypertension Pancreatic cancer Type 2 diabetes GERD Past Surgical History Bilateral arthroscopy Paracentesis done on 12/11/17 Chemotherapy for pancreatic cancer (Abida White) Coded Allergies: No Known Allergies (Verified Allergy, Unknown, 12/09/17) Medications Administered Medications Medications (Trade) Dose Ordered Sig/Jesús Route PRN Reason Start Time Stop Time Status Last Admin Dose Admin Sodium Chloride 1,000 ml @ 100 mls/hr Q10H IV 12/10/17 00:50 12/12/17 00:26 Sodium Chloride (NS Flush) 2 ml BID IV FLUSH 12/10/17 09:00 12/11/17 09:03 Acetaminophen (Tylenol) 650 mg Q4H PRN PO TEMP > 100.4 12/10/17 01:00 12/11/17 09:02 Ondansetron HCl (Zofran Inj) 4 mg Q6H PRN IVP NAUSEA OR VOMITING 12/10/17 01:00 12/11/17 09:01 Heparin Sodium (Porcine) (Heparin Inj) 5,000 units Q8H SQ 12/10/17 01:00 12/12/17 08:19 Insulin Aspart (NovoLOG SUPPLEMENTAL SCALE) 1 ACHS SLIDING SCALE SQ 12/10/17 08:00 12/12/17 08:34 Lisinopril (Prinivil) 5 mg DAILY PO 12/10/17 09:00 12/12/17 08:19 Nifedipine (Procardia Xl) 30 mg DAILY PO 12/10/17 09:00 12/12/17 08:19 Pantoprazole Sodium (Protonix) 20 mg DAILY PO 12/10/17 09:00 12/12/17 08:19 Lactulose (Lactulose Liq) 30 ml TID PO 12/10/17 11:45 12/12/17 08:19 Acetaminophen/ Hydrocodone Bitart ([place] 10-325 Mg) 1 tab Q4H PRN PO 8-10 12/11/17 10:00 12/11/17 21:28 Family History Mother had a history of diabetes and heart disease. Brother had a history of [place] at the age of 66. No family history of colon cancer Social History Patient drinks about 1 can of beer a week. Denies any tobacco or illicit drug use. Patient has significant other that he spends approximately 6 months out of the year with (Abida White) Review of Systems Constitutional: COMPLAINS OF: Fatigue, Weight gain (recent paracentesis done with ringing half liters removed) Gastrointestinal: COMPLAINS OF: Abdominal pain (resolving) (Abida White) GI Exam Vitals I&O Vital Signs Date Time Temp Pulse Resp B/P (MAP) Pulse Ox O2 Delivery O2 Flow Rate FiO2 12/12/17 08:00 99.8 81 16 126/62 (83) 93 12/12/17 05:00 78 12/12/17 04:47 99.3 81 16 120/69 (86) 93 12/12/17 04:04 74 12/12/17 03:00 76 12/12/17 02:00 72 12/12/17 01:00 68 12/12/17 00:23 99.0 108 16 113/63 (80) 94 12/12/17 00:02 70 12/11/17 23:00 72 12/11/17 22:00 94 12/11/17 21:44 99.8 90 18 139/79 (99) 92 12/11/17 21:00 76 12/11/17 20:10 77 12/11/17 16:00 99.3 92 18 137/75 (95) 94 12/11/17 12:00 98.8 76 16 124/73 (90) 93 I/O 12/11/17 12/11/17 12/11/17 12/12/17 12/12/17 12/12/17 07:00 15:00 23:00 07:00 15:00 23:00 Intake Total 1000 ml 490 ml 1200 ml 1240 ml Output Total 350 ml 900 ml Balance 650 ml 490 ml 300 ml 1240 ml Intake Oral 1200 ml 240 ml IV Total 1000 ml 490 ml 1000 ml Output Urine Total 350 ml 900 ml # Voids 2 # Bowel Movements 0 1 Imaging Last Impressions Cyst Biopsy Asp-Paracentesis US 12/11/17 0000 Signed Impressions: Service Date/Time: December 08:05 - CONCLUSION: Uncomplicated ultrasound guided paracentesis. Ryan Zelaya MD Renal Ultrasound 12/10/17 0000 Signed Impressions: Service Date/Time: Sunday, December 10, 2017 16:11 - CONCLUSION: Moderate ascites. Unremarkable renal ultrasound Poli Aranda MD FACR Abdomen X-Ray 12/10/17 0000 Signed Impressions: Service Date/Time: Sunday, December 10, 2017 19:29 - CONCLUSION: No dilated loops of small bowel seen. Jose May MD Abdomen/Pelvis CT 12/09/17 0000 Signed Impressions: Service Date/Time: Saturday, December 09, 2017 23:57 - CONCLUSION: 1. No acute finding is identified within the abdomen or pelvis. However, there is free fluid in the abdomen and pelvis with areas of mild peritoneal enhancement suspicious for peritoneal spread of disease in this patient with known pancreatic cancer. There is a an ill-defined area of low-density in the pancreatic body measuring 2.5 cm and an area of low density fullness in the medial pancreatic head which could correspond to the primary tumor site. Suggest correlating with the patient's prior imaging studies. 2. There are 3 low-density lesions within the liver ranging in size from 9 mm up to 11 mm. These are suspicious for metastatic lesions. Again, suggest correlating with the patient's prior imaging studies. 3. There is a 1.8 cm low-density lesion in the left upper pole kidney. It does not meet criteria for a simple cyst. Suggest correlating with prior imaging studies or further characterizing with ultrasound, if needed clinically. 4. There is a 2.1 cm hypervascular area at the right prostate base. This could represent a hyperplastic nodule or carcinoma. If PSA is elevated which consider further evaluation. Robby Ward MD Laboratory Test 12/12/17 06:11 White Blood Count 4.5 TH/MM3 Red Blood Count 2.98 MIL/MM3 Hemoglobin 9.7 GM/DL Hematocrit 27.0 % Mean Corpuscular Volume 90.3 FL Mean Corpuscular Hemoglobin 32.4 PG Mean Corpuscular Hemoglobin Concent 35.9 % Red Cell Distribution Width 14.5 % Platelet Count 273 TH/MM3 Mean Platelet Volume 6.1 FL Blood Urea Nitrogen 7 MG/DL Creatinine 0.82 MG/DL Random Glucose 162 MG/DL Total Protein 5.5 GM/DL Albumin 2.4 GM/DL Calcium Level 7.6 MG/DL Alkaline Phosphatase 161 U/L Aspartate Amino Transf (AST/SGOT) 19 U/L Alanine Aminotransferase (ALT/SGPT) 24 U/L Total Bilirubin 1.4 MG/DL Direct Bilirubin 0.4 MG/DL Sodium Level 138 MEQ/L Potassium Level 3.8 MEQ/L Chloride Level 106 MEQ/L Carbon Dioxide Level 24.0 MEQ/L Anion Gap 8 MEQ/L Estimat Glomerular Filtration Rate 92 ML/MIN Indirect Bilirubin 1.0 MG/DL Date/Time Source Procedure Growth Status 12/09/17 22:20 Blood Peripheral Aerobic Blood Culture - Preliminary NO GROWTH IN 2 DAYS Resulted 12/09/17 22:20 Blood Peripheral Anaerobic Blood Culture - Preliminary NO GROWTH IN 2 DAYS Resulted Physical Examination HEENT: Pupils round and reactive to light; normocephalic; atraumatic; no jaundice. Throat is clear. NECK: Neck is supple, no JVD, no lymphadenopathy. CHEST: Chest is clear to auscultation and percussion. CARDIAC: Regular rate and rhythm with no murmur gallop or rubs. ABDOMEN: Soft, nondistended, nontender; no hepatosplenomegaly; bowel sounds are present in all four quadrants. EXTREMITIES: No clubbing, cyanosis, or edema. SKIN: Normal; no rash; no jaundice. [employer]: No focal deficits; alert and oriented times three. (Abida White) Assessment and Plan Assessment: (1) Ascites ICD Codes: R18.8 - Other ascites Status: Acute (2) Pancreatic cancer ICD Codes: C25.9 - Malignant neoplasm of pancreas, unspecified Status: Acute (3) Abdominal pain ICD Codes: R10.9 - Unspecified abdominal pain Status: Acute Plan Nausea no active vomiting. History of pancreatic cancer and moderate amount of ascites found on admission ultrasound. Paracentesis done on 12/11/17 with 3-1/ 2 L removed Constipation 10-12 days, enema given yesterday with minimal pellet results. Probable secondary to his narcotic use for pain management No nausea and vomiting 2 days, Patient states colonoscopy around 2014 an EGD around 2011 in [place]. Cytologies pending from paracentesis Blood cultures negative CT scan from 12/09/17 mild peritoneal enhancement suspicious for peritoneal spread of disease. Well defined area of low density in the pancreatic body measuring 2.5 cm. Low density fullness medial pancreatic head which could correspond to the tumor. 3 low density lesions within the liver ranging from 9 mm to 11 mm. Suspicious metastatic lesions 1.8 cm low density lesion in the left upper kidney pole. 2.1 cm hyper vascular area in the right prostate base this could be a nodule or carcinoma. Plan Oil retention enema 118 cc until patient is actively passing soft stools. We will order today 2 if needed. Consider sigmoidoscopy for BM removal if needed Lactulose daily 3 times a day PPI KUB today Monitor labs, and cytology post paracentesis Monitor for any acute bleeding Monitor abdominal pain and fluids. Supportive care This patient was seen per myself and Dr. Mcclure, note was written on his behalf (Abida White) Physician Comments Agree with plan as above. Will follow up with you. Thank you for the consult. (Javi Mcclure MD) Problem Qualifiers (1) Ascites: Qualified Codes: R18.0 - Malignant ascites (2) Pancreatic cancer: Qualified Codes: C25.9 - Malignant neoplasm of pancreas, unspecified (3) Abdominal pain: Qualified Codes: R10.9 - Unspecified abdominal pain Abida White Dec 12, 2017 11:04 Javi Mcclure MD Dec 12, 2017 14:10
[2017-12-12] MEDS ORDERED: MINERAL OIL ENEMA 118 ML BTL RECTAL SCH (11:15)
--- NOTE | 2017-12-12 11:50 | HHI.PR ---
Subjective Remarks Follow-up for ascites Patient denies any nausea. He is tolerating oral intake. He stated that he has a little pain but pain is better control. Patient said he continues to not have a bowel movement. Objective Vitals Vital Signs Date Time Temp Pulse Resp B/P (MAP) Pulse Ox O2 Delivery O2 Flow Rate FiO2 12/12/17 08:00 99.8 81 16 126/62 (83) 93 12/12/17 05:00 78 12/12/17 04:47 99.3 81 16 120/69 (86) 93 12/12/17 04:04 74 12/12/17 03:00 76 12/12/17 02:00 72 12/12/17 01:00 68 12/12/17 00:23 99.0 108 16 113/63 (80) 94 12/12/17 00:02 70 12/11/17 23:00 72 12/11/17 22:00 94 12/11/17 21:44 99.8 90 18 139/79 (99) 92 12/11/17 21:00 76 12/11/17 20:10 77 12/11/17 16:00 99.3 92 18 137/75 (95) 94 12/11/17 12:00 98.8 76 16 124/73 (90) 93 I/O 12/11/17 12/11/17 12/11/17 12/12/17 12/12/17 12/12/17 07:00 15:00 23:00 07:00 15:00 23:00 Intake Total 1000 ml 490 ml 1200 ml 1240 ml Output Total 350 ml 900 ml Balance 650 ml 490 ml 300 ml 1240 ml Intake Oral 1200 ml 240 ml IV Total 1000 ml 490 ml 1000 ml Output Urine Total 350 ml 900 ml # Voids 2 # Bowel Movements 0 1 Result Diagram: 12/12/17 0611 12/12/17 0611 Imaging Last Impressions Cyst Biopsy Asp-Paracentesis US 12/11/17 0000 Signed Impressions: Service Date/Time: December 08:05 - CONCLUSION: Uncomplicated ultrasound guided paracentesis. Ryan Zelaya MD Renal Ultrasound 12/10/17 0000 Signed Impressions: Service Date/Time: Sunday, December 10, 2017 16:11 - CONCLUSION: Moderate ascites. Unremarkable renal ultrasound Poli Aranda MD FACR Abdomen X-Ray 12/10/17 0000 Signed Impressions: Service Date/Time: Sunday, December 10, 2017 19:29 - CONCLUSION: No dilated loops of small bowel seen. Jose May MD Abdomen/Pelvis CT 12/09/17 0000 Signed Impressions: Service Date/Time: Saturday, December 09, 2017 23:57 - CONCLUSION: 1. No acute finding is identified within the abdomen or pelvis. However, there is free fluid in the abdomen and pelvis with areas of mild peritoneal enhancement suspicious for peritoneal spread of disease in this patient with known pancreatic cancer. There is a an ill-defined area of low-density in the pancreatic body measuring 2.5 cm and an area of low density fullness in the medial pancreatic head which could correspond to the primary tumor site. Suggest correlating with the patient's prior imaging studies. 2. There are 3 low-density lesions within the liver ranging in size from 9 mm up to 11 mm. These are suspicious for metastatic lesions. Again, suggest correlating with the patient's prior imaging studies. 3. There is a 1.8 cm low-density lesion in the left upper pole kidney. It does not meet criteria for a simple cyst. Suggest correlating with prior imaging studies or further characterizing with ultrasound, if needed clinically. 4. There is a 2.1 cm hypervascular area at the right prostate base. This could represent a hyperplastic nodule or carcinoma. If PSA is elevated which consider further evaluation. Robby Ward MD Objective Remarks GENERAL: This is a well-nourished, well-developed patient, in no apparent distress. SKIN: No rashes, ecchymoses or lesions. Cool and dry. HEAD: Atraumatic. Normocephalic. No temporal or scalp tenderness. EYES: Pupils equal round and reactive. Extraocular motions intact. No scleral icterus. No injection or drainage. ENT: Nose without bleeding, purulent drainage or septal hematoma. Throat without erythema, tonsillar hypertrophy or exudate. Uvula midline. Airway patent. NECK: Trachea midline. No JVD or lymphadenopathy. Supple, nontender, no meningeal signs. CARDIOVASCULAR: Regular rate and rhythm without murmurs, gallops, or rubs. RESPIRATORY: Clear to auscultation. Breath sounds equal bilaterally. No wheezes , rales, or rhonchi. GASTROINTESTINAL: Abdomen soft. Positive for distention. Mild diffuse tenderness to palpation of abdomen. No hepato-splenomegaly, or palpable masses. No guarding. MUSCULOSKELETAL: Extremities without clubbing, cyanosis, or edema. No joint tenderness, effusion, or edema noted. No calf tenderness. Negative Homans sign bilaterally. NEUROLOGICAL: Awake and alert. Cranial nerves II through XII intact. Motor and sensory grossly within normal limits. Five out of 5 muscle strength in all muscle groups. Normal speech. Medications and IVs Current Medications Sodium Chloride 1,000 ml @ 999 mls/hr BOLUS ONCE IV Last administered on 23:03; Start 12/09/17 at 22:45; Stop 12/09/17 at 23:45; Status DC Ondansetron HCl (Zofran Inj) 4 mg ONCE ONCE IV PUSH Last administered on 23:03; Start 12/09/17 at 22:45; Stop 12/09/17 at 22:46; Status DC Pantoprazole Sodium (Protonix Inj) 40 mg ONCE ONCE IV PUSH Last administered on 12/09/17 23:03; Start 12/09/17 at 22:45; Stop 12/09/17 at 22:46; Status DC Iohexol (Omnipaque 350 Inj) 100 ml [employer]-MED ONCE IVCONTRAST Last administered on 12/10/17at 00:41; Start 12/10/17 at 00:41; Stop 12/10/17 at 00:42; Status DC Sodium Chloride 1,000 ml @ 100 mls/hr Q10H IV Last administered on 12/12/17 00 :26; Start 12/10/17 at 00:50 Sodium Chloride (NS Flush) 2 ml UNSCH PRN IV FLUSH FLUSH AFTER USING IV ACCESS ; Start 12/10/17 at 01:00 Sodium Chloride (NS Flush) 2 ml BID IV FLUSH Last administered on 12/11/17 09: 03; Start 12/10/17 at 09:00 Acetaminophen (Tylenol) 650 mg Q4H PRN PO TEMP > 100.4 Last administered on 12/11 09:02; Start 12/10/17 at 01:00 Ondansetron HCl (Zofran Inj) 4 mg Q6H PRN IVP NAUSEA OR VOMITING Last administered on 12/11/17 09:01; Start 12/10/17 at 01:00 Heparin Sodium (Porcine) (Heparin Inj) 5,000 units Q8H SQ Last administered on 12/12/17 08:19; Start 12/10/17 at 01:00 Naloxone HCl (Narcan Inj) 0.4 mg UNSCH PRN IV PUSH SEE LABEL COMMENTS; Start at 01:00 Morphine Sulfate (Morphine Inj) 2 mg Q3H PRN IV PUSH PAIN SCALE 5 TO 10 Last administered on 12/11/17 09:01; Start 12/10/17 at 01:00; Stop 12/11/17 at 10:02; Status DC Dextrose (D50w (Vial) Inj) 50 ml UNSCH PRN IV PUSH HYPOGLYCEMIA-SEE COMMENTS; Start 12/10/17 at 01:00 Glucagon (Glucagon Inj) 1 mg UNSCH PRN OTHER HYPOGLYCEMIA-SEE COMMENTS; Start 12/10/17 at 01:00 Insulin Aspart (NovoLOG SUPPLEMENTAL SCALE) 1 ACHS SLIDING SCALE SQ Last administered on 12/12/17at 08:34; Start 12/10/17 at 08:00 Lisinopril (Prinivil) 5 mg DAILY PO Last administered on 12/12/17 08:19; Start 12/10/17 at 09:00 Nifedipine (Procardia Xl) 30 mg DAILY PO Last administered on 12/12/17 08:19; Start 12/10/17 at 09:00 Pantoprazole Sodium (Protonix) 20 mg DAILY PO Last administered on 12/12/17 08: 19; Start 12/10/17 at 09:00 Morphine Sulfate (Morphine Inj) 2 mg ONCE ONCE IV PUSH Last administered on 01:27; Start 12/10/17 at 01:00; Stop 12/10/17 at 01:01; Status DC Lactulose (Lactulose Liq) 30 ml TID PO Last administered on 12/12/17 08:19; Start 12/10/17 at 11:45 Lorazepam (Ativan Inj) 1 mg ONCE ONCE IV PUSH Last administered on 12/11/17 10 :08; Start 12/11/17 at 09:45; Stop 12/11/17 at 09:46; Status DC Morphine Sulfate (Morphine Inj) 2 mg Q2HR PRN IV PUSH PAIN SCALE 5 TO 10; Start 12/11/17 at 10:15 Acetaminophen/ Hydrocodone Bitart ([place] 5-325 Mg) 1 tab Q4H PRN PO pain 1-7; Start 12/11/17 at 10:00 Acetaminophen/ Hydrocodone Bitart ([place] 10-325 Mg) 1 tab Q4H PRN PO 8-10 Last administered on 12/11/17at 21:28; Start 12/11/17 at 10:00 Lidocaine HCl (Xylocaine 1% Inj) 20 ml STK-MED ONCE .ROUTE Last administered on 12/11/17at 11:33; Start 12/11/17 at 11:33; Stop 12/11/17 at 11:34; Status DC Mineral Oil (Fleet Mineral Oil Enema) 118 ml ONCE ONCE RECTAL Last administered on 12/11/17at 18:45; Start 12/11/17 at 18:45; Stop 12/11/17 at 18:47; Status DC Mineral Oil (Fleet Mineral Oil Enema) 118 ml DAILY RECTAL ; Start 12/13/17 at 09 :00 Mineral Oil (Fleet Mineral Oil Enema) 236 ml UNSCH X1 RECTAL ; Start 12/12/17 at 11:15; Stop 12/12/17 at 18:00 A/P Assessment and Plan This is a 72-year-old male with history of pancreatic cancer being currently treated with chemotherapy who presented with abdominal pain Abdominal pain/nausea/vomiting -Occurred [address] scan of abdomen/pelvis shows pancreatic, liver, and kidney lesions. It also shows possible metastases to the peritoneum. Comparison to his prior CT scan done in September 2017 it seems like the pancreatic and liver lesion has improved. Patient did not have any peritoneal lesions on the prior CT scan. Renal ultrasound shows ascites otherwise unremarkable. -Oncologist following. -Patient scheduled for a therapeutic and diagnostic paracentesis. -Pain control and nausea also controlled. -Status post paracentesis on 12/11/2017 cytology pending. -GI consulted. Constipation -CT scan or KUB did not show any bowel obstruction or large bowel stools. This is most likely secondary to decreased oral intake from nausea. nausea is controlled at the moment. -GI say patient is clear once he has a bowel movement. Patient will get an oil mineral enema. -Management per GI. Pancreatic cancer with metastases -Patient currently receiving chemotherapy. He is being followed by oncologist Dr. Fontana. -See treatment as above. Type 2 diabetes/hypertension/GERD -Continue with insulin sliding scale. -Continue with home medication. DVT prophylaxis -SCDs encourage ambulation. Discharge Planning Per GI patient is clear for discharge once he has a bowel movement. Pending cytology which patient can follow-up as outpatient. Sari Luu MD Dec 12, 2017 11:50
[2017-12-12] MEDS ORDERED: HYDR-3516 PO (11:53)
[2017-12-12] MEDS ORDERED: Lactulose Liq PO (11:53)
--- NOTE | 2017-12-12 12:12 | RADRPT ---
EXAM DATE/TIME: 12/12/2017 11:40 [facility] COMPARISON: ABDOMEN KUB ONLY, December 10, 2017, 19:29. INDICATIONS : Abdominal distention, constipation. MEDICAL HISTORY : Hypertension. Gastroesophageal reflux disease. Diabetes. Pancreatic cancer.Chemotherapy. SURGICAL HISTORY : Port placement. Abdominal stent. ENCOUNTER: Initial ACUITY: 2 weeks PAIN SCORE: 6/10 LOCATION: abdomen. FINDINGS: Supine view of the abdomen was performed. The abdominal bowel gas pattern is normal. No abnormal ma sses, calcifications, or organomegaly is seen. Stent in the right upper abdominal quadrant, likely a ssociated with the extrahepatic biliary tree. The osseous structures are unremarkable. CONCLUSION: 1. Probable biliary stent. 2. Otherwise negative. Radiographically benign abdomen without obstruction or pneumoperitoneum. Ryan Zelaya MD on December 12, 2017 at 12:09 Board Certified Radiologist. This report was verified electronically.
--- NOTE | 2017-12-12 17:29 | HHI.DS ---
Discharge Summary Admission Date Dec 10, 2017 at 01:01 Admitting Diagnosis Abdominal Pain, Pancreatic CA, Ascites Brief History - From Admission This is a 72-year-old male with pancreatic cancer diagnosed in January 2017 currently being treated with chemotherapy by Dr. Fontana presented due to abdominal pain and distention. Patient stated that this happened about 2 weeks ago which his abdomen got larger and pain worsened over time. He stated that initially was mild but then worsened. He also had nausea and vomiting. He stated that he would vomit his food at times. Patient has been constipated for the last 12 days. He took senna and prune juice for his constipation. He saw Dr. Fontana yesterday and recommended to go to the emergency permit for further treatment. Patient had his CT scan of the abdomen report from September 2017. He said that he was doing better. Denies any fevers or chills. All other review system reviewed and negative. CBC/BMP: 12/12/17 0611 12/12/17 0611 Significant Findings Laboratory Tests Test 12/09/17 22:20 12/09/17 22:30 12/09/17 22:45 12/09/17 23:00 Random Glucose 151 MG/DL (74-106) Alkaline Phosphatase 136 U/L (45-117) Estimat Glomerular Filtration Rate 68 ML/MIN (>89) Lipase 47 U/L (73-393) Urine Turbidity HAZY (CLEAR) Urine Protein 30 mg/dL (NEG-TRACE) Urine Ketones TRACE mg/dL (NEG) Urine Leukocyte Esterase TRACE (NEG) Urine RBC 4 /hpf (0-3) Urine Mucus MANY /lpf (OCC) Red Blood Count 3.89 MIL/MM3 (4.50-5.90) Hemoglobin 12.4 GM/DL (13.0-17.0) Hematocrit 35.9 % (39.0-51.0) Mean Platelet Volume 6.4 FL (7.0-11.0) Neutrophils (%) (Auto) 70.7 % (16.0-70.0) Monocytes (%) (Auto) 8.2 % (0.0-8.0) Test 12/11/17 05:50 3/8/18 10:45 12/12/17 06:11 Red Blood Count 3.09 MIL/MM3 (4.50-5.90) 2.98 MIL/MM3 (4.50-5.90) Hemoglobin 10.1 GM/DL (13.0-17.0) 9.7 GM/DL (13.0-17.0) Hematocrit 28.1 % (39.0-51.0) 27.0 % (39.0-51.0) Mean Platelet Volume 6.0 FL (7.0-11.0) 6.1 FL (7.0-11.0) Neutrophils (%) (Auto) 76.3 % (16.0-70.0) Monocytes (%) (Auto) 8.3 % (0.0-8.0) Random Glucose 161 MG/DL (74-106) 162 MG/DL (74-106) Total Protein 5.8 GM/DL (6.4-8.2) 5.5 GM/DL (6.4-8.2) Albumin 2.7 GM/DL (3.4-5.0) 2.4 GM/DL (3.4-5.0) Calcium Level 8.2 MG/DL (8.5-10.1) 7.6 MG/DL (8.5-10.1) Alkaline Phosphatase 175 U/L (45-117) 161 U/L (45-117) Total Bilirubin 1.1 MG/DL (0.2-1.0) 1.4 MG/DL (0.2-1.0) Estimat Glomerular Filtration Rate 79 ML/MIN (>89) Peritoneal Fluid WBC 1415 /MM3 (0-10) Peritoneal Fluid RBC 49 /MM3 (0-0) Direct Bilirubin 0.4 MG/DL (0.0-0.2) Indirect Bilirubin 1.0 MG/DL (0.0-0.8) PE at Discharge GENERAL: This is a well-nourished, well-developed patient, in no apparent distress. SKIN: No rashes, ecchymoses or lesions. Cool and dry. HEAD: Atraumatic. Normocephalic. No temporal or scalp tenderness. EYES: Pupils equal round and reactive. Extraocular motions intact. No scleral icterus. No injection or drainage. ENT: Nose without bleeding, purulent drainage or septal hematoma. Throat without erythema, tonsillar hypertrophy or exudate. Uvula midline. Airway patent. NECK: Trachea midline. No JVD or lymphadenopathy. Supple, nontender, no meningeal signs. CARDIOVASCULAR: Regular rate and rhythm without murmurs, gallops, or rubs. RESPIRATORY: Clear to auscultation. Breath sounds equal bilaterally. No wheezes , rales, or rhonchi. GASTROINTESTINAL: Abdomen soft. Positive for distention. Mild diffuse tenderness to palpation of abdomen. No hepato-splenomegaly, or palpable masses. No guarding. MUSCULOSKELETAL: Extremities without clubbing, cyanosis, or edema. No joint tenderness, effusion, or edema noted. No calf tenderness. Negative Homans sign bilaterally. NEUROLOGICAL: Awake and alert. Cranial nerves II through XII intact. Motor and sensory grossly within normal limits. Five out of 5 muscle strength in all muscle groups. Normal speech. Pt Condition on Discharge: Good Discharge Disposition: Discharge Home Discharge Instructions DIET: Follow Instructions for: Heart Healthy Diet, Diabetic Diet Activities you can perform: Regular-No Restrictions Srai Luu MD Dec 12, 2017 17:29
--- NOTE | 2017-12-12 17:29 | HHI.DCPOC ---
Discharge Care Plan Diagnosis: (1) Pancreatic cancer (2) Ascites Goals to Promote Your Health * To prevent worsening of your condition and complications * To maintain your health at the optimal level Directions to Meet Your Goals Take your medications as prescribed Follow your dietary instruction Follow activity as directed Keep your appointments as scheduled Take your immunizations and boosters as scheduled If your symptoms worsen call your PCP, if no PCP go to Urgent Care Center or Emergency Room Smoking is Dangerous to Your Health. Avoid second hand smoke Call the 24-hour hour crisis hotline for domestic abuse at Sari Luu MD Dec 12, 2017 17:29
--- NOTE | 2017-12-12 17:57 | PD.ONC.PN ---
Subjective Subjective Remarks Patient seen at bedside this morning. Abdominal distention improved after paracentesis. Small bowel movement this morning. Objective Data Date Time Temp Pulse Resp B/P (MAP) Pulse Ox O2 Delivery O2 Flow Rate FiO2 12/12/17 12:00 100.0 85 18 142/72 (95) 95 12/12/17 08:00 99.8 81 16 126/62 (83) 93 12/12/17 05:00 78 12/12/17 04:47 99.3 81 16 120/69 (86) 93 12/12/17 04:04 74 12/12/17 03:00 76 12/12/17 02:00 72 12/12/17 01:00 68 12/12/17 00:23 99.0 108 16 113/63 (80) 94 12/12/17 00:02 70 12/11/17 23:00 72 12/11/17 22:00 94 12/11/17 21:44 99.8 90 18 139/79 (99) 92 12/11/17 21:00 76 12/11/17 20:10 77 12/12/17 12/12/17 12/12/17 07:00 15:00 23:00 Intake Total 1240 ml Balance 1240 ml Result Diagram: 12/12/17 0611 12/12/17 0611 Laboratory Results Laboratory Tests Test 12/12/17 06:11 White Blood Count 4.5 TH/MM3 Red Blood Count 2.98 MIL/MM3 Hemoglobin 9.7 GM/DL Hematocrit 27.0 % Mean Corpuscular Volume 90.3 FL Mean Corpuscular Hemoglobin 32.4 PG Mean Corpuscular Hemoglobin Concent 35.9 % Red Cell Distribution Width 14.5 % Platelet Count 273 TH/MM3 Mean Platelet Volume 6.1 FL Blood Urea Nitrogen 7 MG/DL Creatinine 0.82 MG/DL Random Glucose 162 MG/DL Total Protein 5.5 GM/DL Albumin 2.4 GM/DL Calcium Level 7.6 MG/DL Alkaline Phosphatase 161 U/L Aspartate Amino Transf (AST/SGOT) 19 U/L Alanine Aminotransferase (ALT/SGPT) 24 U/L Total Bilirubin 1.4 MG/DL Direct Bilirubin 0.4 MG/DL Sodium Level 138 MEQ/L Potassium Level 3.8 MEQ/L Chloride Level 106 MEQ/L Carbon Dioxide Level 24.0 MEQ/L Anion Gap 8 MEQ/L Estimat Glomerular Filtration Rate 92 ML/MIN Indirect Bilirubin 1.0 MG/DL Culture Results Microbiology Date/Time Source Procedure Growth Status 12/09/17 22:20 Blood Peripheral Aerobic Blood Culture - Preliminary NO GROWTH IN 3 DAYS Resulted 12/09/17 22:20 Blood Peripheral Anaerobic Blood Culture - Preliminary NO GROWTH IN 3 DAYS Resulted 12/09/17 22:15 Blood Peripheral Aerobic Blood Culture - Preliminary NO GROWTH IN 3 DAYS Resulted 12/09/17 22:15 Blood Peripheral Anaerobic Blood Culture - Preliminary NO GROWTH IN 3 DAYS Resulted Imaging Studies Last 24 hours Impressions Abdomen X-Ray 12/12/17 0000 Signed Impressions: Service Date/Time: Tuesday, December 12, 2017 11:40 - CONCLUSION: 1. Probable biliary stent. 2. Otherwise negative. Radiographically benign abdomen without obstruction or pneumoperitoneum. Ryan Zelaya MD Administered Medications Medications (Trade) Dose Ordered Sig/Jesús Route PRN Reason Start Time Stop Time Status Last Admin Dose Admin Sodium Chloride 1,000 ml @ 100 mls/hr Q10H IV 12/10/17 00:50 12/12/17 00:26 Sodium Chloride (NS Flush) 2 ml BID IV FLUSH 12/10/17 09:00 12/11/17 09:03 Acetaminophen (Tylenol) 650 mg Q4H PRN PO TEMP > 100.4 12/10/17 01:00 12/11/17 09:02 Ondansetron HCl (Zofran Inj) 4 mg Q6H PRN IVP NAUSEA OR VOMITING 12/10/17 01:00 12/11/17 09:01 Heparin Sodium (Porcine) (Heparin Inj) 5,000 units Q8H SQ 12/10/17 01:00 12/12/17 08:19 Insulin Aspart (NovoLOG SUPPLEMENTAL SCALE) 1 ACHS SLIDING SCALE SQ 12/10/17 08:00 12/12/17 13:01 Lisinopril (Prinivil) 5 mg DAILY PO 12/10/17 09:00 12/12/17 08:19 Nifedipine (Procardia Xl) 30 mg DAILY PO 12/10/17 09:00 12/12/17 08:19 Pantoprazole Sodium (Protonix) 20 mg DAILY PO 12/10/17 09:00 12/12/17 08:19 Lactulose (Lactulose Liq) 30 ml TID PO 12/10/17 11:45 12/12/17 12:49 Acetaminophen/ Hydrocodone Bitart (Lorena 5-325 Mg) 1 tab Q4H PRN PO pain 1-7 12/11/17 10:00 12/12/17 12:49 Acetaminophen/ Hydrocodone Bitart (Lorena 10-325 Mg) 1 tab Q4H PRN PO 8-10 12/11/17 10:00 12/11/17 21:28 Objective Remarks GENERAL: Well-nourished, well-developed patient. SKIN: Warm and dry. HEAD: Normocephalic. EYES: No scleral icterus. No injection or drainage. NECK: Supple, trachea midline. No JVD or lymphadenopathy. LYMPHATIC: No adenopathy. RESPIRATORY: No accessory muscle use. GASTROINTESTINAL: Abdomen soft, non-tender, protuberent but improved distension after paracentesis. EXTREMITIES: No lower extremity edema. MUSCULOSKELETAL: Adequate muscle tone. NEUROLOGICAL: No obvious focal deficit. Awake, alert, and oriented x3. PSYCHIATRIC: Appropriate mood and affect; insight and judgment normal. Assessment/Plan Assessment 1. Metastatic pancreatic cancer: currently receiving treatment under the direction of Dr. Fontana. Most recent CT scan with overall improvement of masses in the head of the pancreas and peritoneal enhancement suspicious for peritoneal spread of disease. s/p paracentesis with cytology results pending. Close follow with Dr. Fontana in clinic. 2. Ascites: uncertain of etiology. Cytology results pending. Possibly secondary to malignancy. 3. Abdominal pain: improved with paracentesis and bowel movement. hCe Steward MD Dec 12, 2017 17:57
[2017-12-13] MEDS ORDERED: MINERAL OIL ENEMA 118 ML BTL RECTAL SCH (09:00)
== END 2017-12-12 19:04 | disposition home or self-care (01) ==
LOC: NEPE 19:54 → NEDA 12-10 01:01 → HCIN 12-10 04:00
PROVIDERS: ADMIT Internal Medicine; ATTEND Internal Medicine
DX: R18.0 Malignant ascites (principal); C25.9 Malignant neoplasm of pancreas, unspecified; C78.7 Secondary malignant neoplasm of liver and intrahepatic bile duct; K21.9 Gastro-esophageal reflux disease without esophagitis; I10 Essential (primary) hypertension; E11.9 Type 2 diabetes mellitus without complications; R40.0 Somnolence; K59.00 Constipation, unspecified; Z79.4 Long term (current) use of insulin; Z85.07 Personal history of malignant neoplasm of pancreas; Z92.21 Personal history of antineoplastic chemotherapy
CPT/HCPCS: 49083; 74018; 74177; 76775; 80048; 80053; 80076; 81001; 82042; 82948; 83605; 83690; 84157; 85025; 85027; 85610; 85730; 87040; 88112; 88305; 88341; 88342; 89051; 96361; 96372; 96374; 96375; 96376; 99285; C1729; C9113; G0378; J1644; J1815; J2060; J2270; J2405; J7030; Q9967

== ENCOUNTER 2017-12-15 10:34 | Emergency (ER) | payer MEDICARE, OTHER ==
[~2017-12-15] VITALS: Ht 170.2 cm; Wt 83.0 kg
[~2017-12-15 10:34] MED LIST: HUMALOG SQ; HYDR-3516 PO; LISI-519 PO; Lactulose Liq PO; METF500T PO; NIFE30TA61 PO; OMEP20TA93 PO; ONDA8TAB7 PO
[2017-12-15 10:55] VITALS: BP 80/53; PULSE 87; RESP 19; TEMP 97.3; O2SAT 91
[2017-12-15 11:17] VITALS: RESP 16; O2SAT 96
[2017-12-15 11:18] VITALS: BP 119/60; PULSE 91; RESP 16; O2SAT 97
[2017-12-15] MEDS ORDERED: ONDANSETRON HCL 4 MG/2 ML VIAL IV PUSH ONE (11:30)
[2017-12-15] MEDS ORDERED: SODIUM CHLOR 0.9% 1000 ML INJ 1,000 ML IV ONE (11:30)
[2017-12-15] MEDS ORDERED: MORPHINE SULFATE 4 MG/ML INJ IV PUSH ONE (11:30)
[2017-12-15 11:44] LABS: AUTOMATED NEUTROPHIL # 8.4 TH/MM3 (1.8-7.7); BASOPHIL # 0.1 TH/MM3 (0-0.2); BASOPHIL % 0.4 % (0.0-2.0); EOSINOPHIL # 0.1 TH/MM3 (0-0.4); EOSINOPHIL % 1.2 % (0.0-4.0); HEMATOCRIT 35.1 % (39.0-51.0); HEMOGLOBIN 12.2 GM/DL (13.0-17.0); LYMPH % 16.3 % (9.0-44.0); LYMPHOCYTE # 1.9 TH/MM3 (1.0-4.8); MEAN CELL VOLUME 90.1 FL (80.0-100.0); MEAN CORPUSCULAR HEMOGLOBIN 31.4 PG (27.0-34.0); MEAN CORPUSCULAR HGB CONC 34.8 % (32.0-36.0); MEAN PLATELET VOLUME 6.4 FL (7.0-11.0); MONOCYTE # 1.3 TH/MM3 (0-0.9); NEUT % 71.1 % (16.0-70.0); PLATELET COUNT 545 TH/MM3 (150-450); RED CELL DISTRIBUTION WIDTH 14.5 % (11.6-17.2); WHITE BLOOD COUNT 11.8 TH/MM3 (4.0-11.0)
--- NOTE | 2017-12-15 11:46 | PD ---
HPI Chief Complaint: Abdominal Pain Time Seen by Provider: 11:26 Travel History International Travel<30 days: No Contact w/Intl Traveler<30days: No Traveled to known affect area: No History of Present Illness HPI 72-year-old male with a history of diabetes mellitus on chemotherapy for metastatic pancreatic cancer presents to the emergency department complaining of groin pain that started Friday. Patient states that he was in the hospital for paracentesis Friday and was discharged feeling 'better' but developed groin pain Friday after straining from a bowel movement. Patient describes his pain as "burning" and moderate to severe. Says that his left groin is larger than his right. He has no history of this previously. Last BM Friday with significant difficulty at discharge, last urine was this morning without issue. Denies fever, chills, nausea, vomiting, diarrhea, hematemesis. Says he vomited this morning, likely secondary to taking his pain medications without food. Says his vomiting was green in color. Says that ever since he had chemotherapy 3 weeks ago, he has had problems with nausea and vomiting. He has no other complaints today. His Oncologist is Dr. Fontana, Dr. Steward is covering while Dr. Fontana is away. PFS Past Medical History Cancer: Yes (pancreatic ca ) Chemotherapy: Yes Diabetes: Yes Patient Takes Glucophage: No Implanted Vascular Access Dvce: Yes Psychiatric: No Past Surgical History Body Medical Devices: right double chest port Social History Alcohol Use: Yes (occassionally ) Tobacco Use: No Substance Use: No Allergies-Medications (Allergen,Severity, Reaction): Coded Allergies: No Known Allergies (Verified Allergy, Unknown, 12/15/17) Reported Meds & Prescriptions Reported Meds & Active Scripts Active Percocet (Oxycodone-Acetaminophen) 10-325 mg Tab 1 Tab PO Q6H PRN [Lactulose Liq] 30 ML Syrp 30 Ml PO TID PRN Hydrocodone-Acetamin 5-325 mg (Hydrocodone/Acetaminophen) 5 Mg-325 Mg Tablet 1 Tab PO Q4H PRN Reported Humalog Inj (Insulin Human Lispro) 1,000 Unit/10 Ml Vial 10 Units SQ ACHS Max dose at bedtime:( )units; sugars < 70,(0)units; sugars 150-199,(2)units; sugars 200-249,(4)units; sugars 250-299,(7)units; sugars 300-349,(10)units; sugars more than 349,(12)units. Lisinopril 5 Mg Tab 5 Mg PO DAILY Ondansetron (Ondansetron HCl) 8 Mg Tab 8 Mg PO TID PRN Omeprazole 20 Mg Tab 20 Mg PO DAILY Nifedipine ER 24 HR (Nifedipine) 30 Mg Tab 30 Mg PO DAILY Metformin (Metformin HCl) 500 Mg Tab 500 Mg PO BIDPC Review of Systems Except as stated in HPI: all other systems reviewed are Neg Physical Exam Narrative GENERAL: Well developed, well-nourished, slightly diaphoretic SKIN: Focused skin assessment warm/dry, pale HEAD: Atraumatic. Normocephalic. EYES: Pupils equal and round. No scleral icterus. No injection or drainage. ENT: No nasal bleeding or discharge. Mucous membranes pink and dry NECK: Trachea midline. No JVD. No lymphadenopathy CARDIOVASCULAR: Regular rate and rhythm. No murmur appreciated. RESPIRATORY: No accessory muscle use. Clear to auscultation. Breath sounds equal bilaterally. GASTROINTESTINAL: Abdomen protuberant, mildly distended, mild TTP to right upper quadrant. Groin-left groin with palpable mass significantly tender to palpation- right groin, mild TTP without significant bulge MUSCULOSKELETAL: No obvious deformities. No clubbing. No cyanosis. No edema. NEUROLOGICAL: Awake and alert. No obvious cranial nerve deficits. Motor grossly within normal limits. Normal speech. PSYCHIATRIC: Appropriate mood and affect; insight and judgment normal. Data Data Last Documented VS Vital Signs Date Time Temp Pulse Resp B/P (MAP) Pulse Ox O2 Delivery O2 Flow Rate FiO2 12/15/17 16:20 18 12/15/17 13:00 79 96 Nasal Cannula 2.00 12/15/17 10:55 97.3 Orders Orders Complete Blood Count With Diff (12/15/17 10:59) Comprehensive Metabolic Panel (12/15/17 10:59) Urinalysis - C+S If Indicated (12/15/17 10:59) Iv Access Insert/Monitor (12/15/17 10:59) Oxygen Administration (12/15/17 10:59) Oximetry (12/15/17 10:59) Lipase (12/15/17 10:59) Morphine Inj (Morphine Inj) (12/15/17 11:30) Ondansetron Inj (Zofran Inj) (12/15/17 11:30) Sodium Chlor 0.9% 1000 Ml Inj (Ns 1000 M (12/15/17 11:30) Act Partial Throm Time (Ptt) (12/15/17 11:16) Prothrombin Time / Inr (Pt) (12/15/17 11:16) Ct Abd/Pel W Iv Contrast(Rout) (12/15/17 ) Iohexol 350 Inj (Omnipaque 350 Inj) (12/15/17 13:05) Ed Discharge Order (12/15/17 15:28) Oxycodone-Acetamin 10-325 Mg (Percocet 1 (12/15/17 16:00) Labs Laboratory Tests Test 12/15/17 11:20 White Blood Count 11.8 TH/MM3 Red Blood Count 3.90 MIL/MM3 Hemoglobin 12.2 GM/DL Hematocrit 35.1 % Mean Corpuscular Volume 90.1 FL Mean Corpuscular Hemoglobin 31.4 PG Mean Corpuscular Hemoglobin Concent 34.8 % Red Cell Distribution Width 14.5 % Platelet Count 545 TH/MM3 Mean Platelet Volume 6.4 FL Neutrophils (%) (Auto) 71.1 % Lymphocytes (%) (Auto) 16.3 % Monocytes (%) (Auto) 11.0 % Eosinophils (%) (Auto) 1.2 % Basophils (%) (Auto) 0.4 % Neutrophils # (Auto) 8.4 TH/MM3 Lymphocytes # (Auto) 1.9 TH/MM3 Monocytes # (Auto) 1.3 TH/MM3 Eosinophils # (Auto) 0.1 TH/MM3 Basophils # (Auto) 0.1 TH/MM3 CBC Comment DIFF FINAL Differential Comment Prothrombin Time 10.7 SEC Prothromb Time International Ratio 1.1 RATIO Activated Partial Thromboplast Time 29.9 SEC Blood Urea Nitrogen 15 MG/DL Creatinine 1.31 MG/DL Random Glucose 221 MG/DL Total Protein 6.8 GM/DL Albumin 2.8 GM/DL Calcium Level 8.8 MG/DL Alkaline Phosphatase 156 U/L Aspartate Amino Transf (AST/SGOT) 16 U/L Alanine Aminotransferase (ALT/SGPT) 21 U/L Total Bilirubin 0.9 MG/DL Sodium Level 136 MEQ/L Potassium Level 3.5 MEQ/L Chloride Level 103 MEQ/L Carbon Dioxide Level 22.0 MEQ/L Anion Gap 11 MEQ/L Estimat Glomerular Filtration Rate 54 ML/MIN Lipase 44 U/L [facility] Medical Decision Making Medical Screen Exam Complete: Yes Emergency Medical Condition: Yes Differential Diagnosis inguinal hernia, SBO, cholecystitis, constipation, peritonitis, Narrative Course 72y male with a history of pancreatic cancer with mets to liver presents to the ED with complaints of lower abdominal and groin pain. Initial BP hypotensive- likely a vasovagal response secondary to pain. Repeat BP in room stable. Physical exam findings demonstrate left groin with significant TTP. Bladder does not appear to be distended. Abdomen protuberant with hepatomegaly. Labs and imaging studies ordered. CT Abdomen/pelvis ordered as he does have some mild TTP to RUQ along with b/l groin. In addition,he had bilous vomiting this morning and he is unsure of the acuity of this. 1LNS, morphine, ice applied to the groin for comfort. Last Impressions Abdomen/Pelvis CT 12/15/17 0000 Signed Impressions: Service Date/Time: Friday, December 15, 2017 13:00 - CONCLUSION: 1. Moderate ascites again seen, with stranding appearance of the omentum suspected for carcinomatosis. 2. Right lobe liver lesion is less pronounced but this may be technical. Everette Nicole MD Labs show Leukocytosis at 11.8, chronic anemia at 12.2/35.1, mild change in kidney function at BUN/Cr 15/1.31, UA non contributory. Review of the EMR: Pt had a paracentesis 12/11/2017 where 3.5L fluid was removed. Pt discharged from this hospital 12/12/17 after this procedure with close follow up with his oncologist. He had a CT abd/pelvis 12/09/2017 as well which demonstrated similar findings to today's CT. Please see Dr. Renner's note for final dispo. He will be discharged with close follow up with Dr. Fontana. Referrals: Oncologist Primary Care Physician Additional Instructions: Follow up with your primary care physician as discussed. Scripts Oxycodone-Acetaminophen (Percocet) 10-325 mg Tab 1 TAB PO Q6H Y for PAIN, #15 TAB 0 Refills Prov: Mehrdad Renner MD 12/15/17 Disposition: 01 DISCHARGE HOME Condition: Stable Joan Grant Dec 15, 2017 11:45
--- NOTE | 2017-12-15 11:50 | PD ---
Physical Exam Date Seen by Provider: Dec 15, 2017 Time Seen by Provider: 11:49 Narrative The patient is a 72-year-old male was initially evaluated by the mid-level provider. Please refer to the initial history, physical, diagnostic evaluation , and treatment modality plan. Data Data Last Documented VS Vital Signs Date Time Temp Pulse Resp B/P (MAP) Pulse Ox O2 Delivery O2 Flow Rate FiO2 12/15/17 13:00 79 16 124/72 (89) 96 Nasal Cannula 2.00 12/15/17 10:55 97.3 Orders Orders Complete Blood Count With Diff (12/15/17 10:59) Comprehensive Metabolic Panel (12/15/17 10:59) Urinalysis - C+S If Indicated (12/15/17 10:59) Iv Access Insert/Monitor (12/15/17 10:59) Oxygen Administration (12/15/17 10:59) Oximetry (12/15/17 10:59) Lipase (12/15/17 10:59) Morphine Inj (Morphine Inj) (12/15/17 11:30) Ondansetron Inj (Zofran Inj) (12/15/17 11:30) Sodium Chlor 0.9% 1000 Ml Inj (Ns 1000 M (12/15/17 11:30) Act Partial Throm Time (Ptt) (12/15/17 11:16) Prothrombin Time / Inr (Pt) (12/15/17 11:16) Ct Abd/Pel W Iv Contrast(Rout) (12/15/17 ) Iohexol 350 Inj (Omnipaque 350 Inj) (12/15/17 13:05) Labs Laboratory Tests Test 12/15/17 11:20 White Blood Count 11.8 TH/MM3 Red Blood Count 3.90 MIL/MM3 Hemoglobin 12.2 GM/DL Hematocrit 35.1 % Mean Corpuscular Volume 90.1 FL Mean Corpuscular Hemoglobin 31.4 PG Mean Corpuscular Hemoglobin Concent 34.8 % Red Cell Distribution Width 14.5 % Platelet Count 545 TH/MM3 Mean Platelet Volume 6.4 FL Neutrophils (%) (Auto) 71.1 % Lymphocytes (%) (Auto) 16.3 % Monocytes (%) (Auto) 11.0 % Eosinophils (%) (Auto) 1.2 % Basophils (%) (Auto) 0.4 % Neutrophils # (Auto) 8.4 TH/MM3 Lymphocytes # (Auto) 1.9 TH/MM3 Monocytes # (Auto) 1.3 TH/MM3 Eosinophils # (Auto) 0.1 TH/MM3 Basophils # (Auto) 0.1 TH/MM3 CBC Comment DIFF FINAL Differential Comment Prothrombin Time 10.7 SEC Prothromb Time International Ratio 1.1 RATIO Activated Partial Thromboplast Time 29.9 SEC Blood Urea Nitrogen 15 MG/DL Creatinine 1.31 MG/DL Random Glucose 221 MG/DL Total Protein 6.8 GM/DL Albumin 2.8 GM/DL Calcium Level 8.8 MG/DL Alkaline Phosphatase 156 U/L Aspartate Amino Transf (AST/SGOT) 16 U/L Alanine Aminotransferase (ALT/SGPT) 21 U/L Total Bilirubin 0.9 MG/DL Sodium Level 136 MEQ/L Potassium Level 3.5 MEQ/L Chloride Level 103 MEQ/L Carbon Dioxide Level 22.0 MEQ/L Anion Gap 11 MEQ/L Estimat Glomerular Filtration Rate 54 ML/MIN Lipase 44 U/L MDM Medical Record Reviewed: Yes Supervised Visit with FIORELLA: Yes Interpretation(s) Last Impressions Abdomen/Pelvis CT 12/15/17 0000 Signed Impressions: Service Date/Time: Friday, December 15, 2017 13:00 - CONCLUSION: 1. Moderate ascites again seen, with stranding appearance of the omentum suspected for carcinomatosis. 2. Right lobe liver lesion is less pronounced but this may be technical. Everette Nicole MD Laboratory Tests Test 12/15/17 11:20 White Blood Count 11.8 TH/MM3 Red Blood Count 3.90 MIL/MM3 Hemoglobin 12.2 GM/DL Hematocrit 35.1 % Mean Corpuscular Volume 90.1 FL Mean Corpuscular Hemoglobin 31.4 PG Mean Corpuscular Hemoglobin Concent 34.8 % Red Cell Distribution Width 14.5 % Platelet Count 545 TH/MM3 Mean Platelet Volume 6.4 FL Neutrophils (%) (Auto) 71.1 % Lymphocytes (%) (Auto) 16.3 % Monocytes (%) (Auto) 11.0 % Eosinophils (%) (Auto) 1.2 % Basophils (%) (Auto) 0.4 % Neutrophils # (Auto) 8.4 TH/MM3 Lymphocytes # (Auto) 1.9 TH/MM3 Monocytes # (Auto) 1.3 TH/MM3 Eosinophils # (Auto) 0.1 TH/MM3 Basophils # (Auto) 0.1 TH/MM3 CBC Comment DIFF FINAL Differential Comment Prothrombin Time 10.7 SEC Prothromb Time International Ratio 1.1 RATIO Activated Partial Thromboplast Time 29.9 SEC Blood Urea Nitrogen 15 MG/DL Creatinine 1.31 MG/DL Random Glucose 221 MG/DL Total Protein 6.8 GM/DL Albumin 2.8 GM/DL Calcium Level 8.8 MG/DL Alkaline Phosphatase 156 U/L Aspartate Amino Transf (AST/SGOT) 16 U/L Alanine Aminotransferase (ALT/SGPT) 21 U/L Total Bilirubin 0.9 MG/DL Sodium Level 136 MEQ/L Potassium Level 3.5 MEQ/L Chloride Level 103 MEQ/L Carbon Dioxide Level 22.0 MEQ/L Anion Gap 11 MEQ/L Estimat Glomerular Filtration Rate 54 ML/MIN Lipase 44 U/L Differential Diagnosis Differential diagnosis includes neuralgia, metastatic cancer, incarcerated hernia, strangling hernia, inguinal hernia, hydrocele, varicocele, UTI. Narrative Course The patient was initially evaluated by the mid-level provider. Please refer to the initial history, physical, diagnostic evaluation, and treatment modality plan. I evaluated the patient, he does have a history of pancreatic cancer. 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 He is currently being treated by Dr. Fontana. The patient was in the hospital last week for abdominal pain and distention with ascites, underwent paracentesis. The patient states that the left lower pelvic pain started on Friday, he denies any known history of hernia, does note the pain is worse with weightbearing and certain movements of the left leg. He denies any dysuria. Symptoms are moderate. CT of the abdomen and pelvis was performed to evaluate for possible hernia versus fluid collection with the affected area. The patient was noted to be hypotensive upon arrival by EMS, however, he was in pain at that time and diaphoretic with movement, the patient's blood pressure has improved and his symptoms have resolved. Most likely this is a vasovagal response secondary to pain. CT was noted, labs were noted. I discussed the patient with his oncologist, Dr. Fontana, at 3:15 PM. Patient will be discharged home, is advised to call his oncologist office later today or tomorrow morning to make an appointment for follow-up in regards to pathology from paracentesis. I will place the patient on Percocet as needed for pain. Diagnosis Primary Impression: Pelvic pain in male Patient Instructions: General Instructions Additional Instruction: Medications as directed. Please provide the patient a copy of his CT results and lab results at discharge. Follow-up with your oncologist, Dr. Fontana, call for an appointment for follow-up in regards to your pathology from previous paracentesis. Med/Other Pt SpecificInfo: Prescription(s) given Scripts Oxycodone-Acetaminophen (Percocet) 10-325 mg Tab 1 TAB PO Q6H Y for PAIN, #15 TAB 0 Refills Prov: Mehrdad Renner MD 12/15/17 Disposition: DISCHARGE HOME Condition: Stable Mehrdad Renner MD Dec 15, 2017 11:50
[2017-12-15 11:51] LABS: INTERNATIONAL NORMALIZED RATIO 1.1 RATIO; PROTHROMBIN TIME - PATIENT 10.7 SEC (9.8-11.6)
[2017-12-15 12:00] VITALS: BP 135/77; PULSE 80; RESP 16; O2SAT 99
[2017-12-15 12:08] LABS: ALBUMIN 2.8 GM/DL (3.4-5.0); ALT (GPT) 21 U/L (12-78); AST (GOT) 16 U/L (15-37); BLOOD UREA NITROGEN 15 MG/DL (7-18); CALCIUM 8.8 MG/DL (8.5-10.1); CHLORIDE 103 MEQ/L (98-107); CREATININE 1.31 MG/DL (0.60-1.30); GLOMERULAR FILTRATION RATE 54 ML/MIN (>89); GLUCOSE,RANDOM 221 MG/DL (74-106); SODIUM (NA) 136 MEQ/L (136-145)
[2017-12-15 12:19] LABS: ALKALINE PHOSPHATASE 156 U/L (45-117); TOTAL BILIRUBIN ADULT 0.9 MG/DL (0.2-1.0); TOTAL PROTEIN 6.8 GM/DL (6.4-8.2)
[2017-12-15 13:00] VITALS: BP 124/72; PULSE 79; RESP 16; O2SAT 96
[2017-12-15] MEDS ORDERED: IOHEXOL 350 MG/ML 10 ML VIAL (for RAD DIAG) IVCONTRAST ONE (13:05)
--- NOTE | 2017-12-15 13:37 | RADRPT ---
EXAM DATE/TIME: 12/15/2017 13:00 This report includes an Addendum and supersedes previous reports for this exam. [facility] COMPARISON: CT ABDOMEN & PELVIS W CONTRAST, December 09, 2017, 23:57. INDICATIONS : Bilateral lower quadrant pain. IV CONTRAST: 94 cc Omnipaque 350 (iohexol) IV ORAL CONTRAST: No oral contrast ingested. RADIATION DOSE: 7.04 CTDIvol (mGy) MEDICAL HISTORY : Carcinoma, pancreas. Diabetes SURGICAL HISTORY : ENCOUNTER: Initial ACUITY: 3 days PAIN SCALE: 4/10 LOCATION: Bilateral lower quadrant TECHNIQUE: Volumetric scanning of the abdomen and pelvis was performed. Using automated exposure control and ad justment of the mA and/or kV according to patient size, radiation dose was kept as low as reasonably achievable to obtain optimal diagnostic quality images. DICOM format image data is available electro nically for review and comparison. FINDINGS: Lung bases are clear with atelectasis seen. There are degenerative changes of the spine noted. There is a large volume of ascites present within the abdomen and pelvis. There is a fat containing left in guinal hernia and a smaller right renal fat there is some peritoneal fluid in the left inguinal canal . The prostate is enlarged and 6 cm in AP transverse dimension. There is an enhancing nodule at the a nterior aspect of the prostate impressing upon the posterior aspect of the bladder measuring 1.9 x 1. 9 cm in AP and transverse dimension. There is no evidence for bowel obstruction. There is mild bowel wall thickening involving small and large bowel likely related to the ascites. Atherosclerotic calcif ications of the aorta and iliac vessels are seen. There is pneumobilia present in the left hepatic bi liary tree, and common bile duct stent is identified. There is a hypodense area in the mid body the p ancreas which is unchanged on axial image 31. There are subcentimeter peripancreatic lymph nodes iden tified.. Mildly nodular hepatic contour again noted. Within the right lobe of the liver on image 23 a low density focus is again seen, slightly decreased in prominence of this may be related to the phas e of contrast. Low-density lesion in the left lobe of the liver on image 13 is unchanged. A stable lo w-density focus left midpole kidney posteriorly measuring 1.9 cm and 41 Hounsfield units, incompletel y characterized on this study CONCLUSION: 1. Moderate ascites again seen, with stranding appearance of the omentum suspected for carcinomatosis . 2. Right lobe liver lesion is less pronounced but this may be technical. Everette Nicole MD on December 15, 2017 at 13:26 Board Certified Radiologist. This report was verified electronically. ADDENDUM: There is a left inguinal hernia that contains fat and a small amount of ascitic fluid. No mass lesion is demonstrated. The findings were discussed with Dr. Fontana by phone. Robby Jin MD on December 16, 2017 at 19:50 Board Certified Radiologist. This report was verified electronically.
[2017-12-15] MEDS ORDERED: PERC10TA27 PO (15:27)
[2017-12-15] MEDS ORDERED: oxyCODONE/ACETAMINOPHEN 10 MG/325 MG TAB PO ONE (16:00)
== END 2017-12-15 16:17 | disposition home or self-care (01) ==
LOC: NEPC 10:34
DX: R10.2 Pelvic and perineal pain (principal); R18.8 Other ascites; I95.9 Hypotension, unspecified; C25.9 Malignant neoplasm of pancreas, unspecified; C78.7 Secondary malignant neoplasm of liver and intrahepatic bile duct; E11.9 Type 2 diabetes mellitus without complications
CPT/HCPCS: 74177; 80053; 83690; 85025; 85610; 85730; 96361; 96374; 96375; 99284; J2270; J2405; J7030; Q9967

== ENCOUNTER 2017-12-19 09:46 | Day surgery (SDC) | payer OTHER ==
[~2017-12-19 09:46] MED LIST changes: +PERC10TA27 PO
[2017-12-19] MEDS ORDERED: LIDOCAINE HCL 1% 20 ML VIAL ONE (11:27)
[2017-12-19] MEDS ORDERED: ALBUMIN 25% INJ 0 ML IV ONE (11:30)
[2017-12-19 12:18] VITALS: BP 128/69; PULSE 88; RESP 16; TEMP 97.6; O2SAT 98
[2017-12-19 12:33] VITALS: BP 124/68; PULSE 86; RESP 17; O2SAT 97
[2017-12-19] MEDS ORDERED: ALBUMIN HUMAN 25% 12.5GM-W/25GM FOR 37.5GM IV ONE (12:45)
[2017-12-19] MEDS ORDERED: ALBUMIN HUMAN 25% 25GM-W/12.5GM FOR 37.5GM IV ONE (12:45)
--- NOTE | 2017-12-19 13:38 | RADRPT ---
EXAM DATE/TIME: 12/19/2017 10:37 [place] COMPARISON: US GUIDED ABD PARACENTESIS, December 11, 2017, 8:05. INDICATIONS : Ascites. MEDICAL HISTORY : Hypertension. Gastroesophageal reflux disease. Diabetes. Pancreatic cancer. Chemotherapy. SURGICAL HISTORY : Port placement. Paracentesis. ENCOUNTER: Subsequent ACUITY: 1 week PAIN SCORE: 5/10 LOCATION: Right lower quadrant FLUID: Total volume of 5800 cc of clear, yellow fluid was removed. Fluid was discarded. Paracentesis was therapeutic only. Post procedure scanning reveals no hematoma or other complication. TECHNIQUE: 1. Ultrasound guidance for abdominal paracentesis. 2. Paracentesis. The risks, benefits, and alternatives to ultrasound guided paracentesis were explained to the patient in detail including the risk of bleeding and infection. Written and verbal informed consent was obt ained. With the patient on the ultrasound table, ultrasound imaging was used to select the most appropriate approach for paracentesis. Overlying skin was prepped and draped in the usual sterile fashion and wi th a local anesthetic, a dermatotomy was made with an 11 blade scalpel. A 6 [place] Jcp-[id number]-depcchlm ca theter was introduced into the peritoneal cavity and fluid was collected. The patient tolerated the procedure well and left the ultrasound suite in stable condition. CONCLUSION: Uncomplicated ultrasound guided paracentesis. Kashmir Park MD on December 19, 2017 at 13:35 Board Certified Radiologist. This report was verified electronically.
== END 2017-12-19 14:00 | disposition hospice, inpatient (51) ==
LOC: HRAD 09:46 → HRIP 10:01 → HRAD 14:00
PROVIDERS: ATTEND Family Medicine
DX: R18.8 Other ascites (principal); C25.9 Malignant neoplasm of pancreas, unspecified; I10 Essential (primary) hypertension; K21.9 Gastro-esophageal reflux disease without esophagitis; E11.9 Type 2 diabetes mellitus without complications
CPT/HCPCS: 49083; 96365; C1729; P9047